=== PATIENT | female | born 1965 | race African-American/Black ===

== ENCOUNTER 2019-03-11 13:09 | Emergency (ER) | payer SELFPAY ==
[~2019-03-11 13:09] MED LIST: ISOVUE-370 76%-LOCM 1 ML ONE
[2019-03-11 14:09] LABS: #Eosinphils 0.1 thou/uL (0.0-0.7); #Lymphocytes 0.7 thou/uL (1.20-3.40); #Monocytes 0.2 thou/uL (0.11-0.59); #Neutrophils 3.4 thou/uL (1.40-6.50); %Basophils 0.8 % (0.0-1.0); %Lymphocytes 14.7 % (21.0-51.0); %Monocytes 4.8 % (0.0-10.0); %Neutrophils 76.8 % (42.0-75.0); Hemoglobin 15.3 g/dL (12.0-16.0); Mean Corpuscular HGB CONC 32.5 g/dL (32.0-36.0); Mean Corpuscular Hemoglobin 29.2 pg (27.0-31.0); Mean Corpuscular Volume 89.9 fL (78.0-98.0); Mean Platelet Volume 9.8 fL (7.4-10.4); Platelet Count 157 thou/uL (130-400); RBC Distribution Width 14.4 % (11.5-14.5); Red Blood Cell (RBC) Count 5.23 mill/uL (4.20-5.40); White Blood Cell (WBC) Count 4.5 thou/uL (4.8-10.8)
--- NOTE | 2019-03-11 14:09 | CT ---
CTA Angio Chest W WO Con HISTORY: Chest pain and shortness of breath. COMPARISON: None. FINDINGS: There are subsegmental atelectatic changes within the lung bases. No confluent infiltrative process or pulmonary nodules. Linear atelectasis is also seen in both upper lobes. No pleural effusions. The thoracic aorta is normal in caliber. There is fairly good pulmonary artery opacification there is no CT evidence for pulmonary embolus. There is no significant mediastinal or hilar adenopathy. The visualized liver parenchyma shows no foc al findings. A low-attenuation left adrenal mass is again noted. It was seen on a previous 2006 exam most likely an adenoma. Measures approximately 4.6 cm. IMPRESSION: No CT evidence for pulmonary embolus.
[2019-03-11 14:23] LABS: ALT (SGPT) 14 U/L (8-55); AST (SGOT) 10 U/L (5-34); Albumin 3.7 g/dL (3.5-5.0); Alkaline Phosphatase 73 U/L (40-150); Anion Gap 9 mmol/L (10-20); BUN (Urea Nitrogen) 10 mg/dL (9.8-20.1); Bilirubin, Total 0.6 mg/dL (0.2-1.2); Calc. Creatinine Clearance 0 mL/min (70-130); Calcium 8.9 mg/dL (7.8-10.44); Carbon Dioxide 36 mmol/L (22-29); Chloride 100 mmol/L (98-107); Estimated GFR-MDRD Greater than 90; Globulin 2.3 g/dL (2.4-3.5); Glucose 199 mg/dL (70-105); Lipase 17 U/L (8-78); Potassium 4.2 mmol/L (3.5-5.1); Sodium 141 mmol/L (136-145)
== END 2019-03-11 15:13 | disposition home or self-care (01) ==
LOC: ERS 13:09
DX: R07.89 Other chest pain (principal); I11.0 Hypertensive heart disease with heart failure; I50.9 Heart failure, unspecified; Z86.711 Personal history of pulmonary embolism; F17.210 Nicotine dependence, cigarettes, uncomplicated; Z79.899 Other long term (current) drug therapy
CPT/HCPCS: 36415; 71275; 80053; 83690; 83880; 84484; 85025; 93005

== ENCOUNTER 2020-01-12 00:16 | Inpatient (IN) | payer OTHER, SELFPAY ==
[2020-01-12 03:31] LABS: Actual Bicarbonate (HCO3a) 38.2 mEq/L (22-28); Base Excess (BEa) 12.7 mEq/L (-2.0 to +3.0); CO2 Tension 50.5 mmHg (35.0-45.0); Calcium, Ionized (arterial) 1.14 mmol/L (1.12-1.30); Carboxyhemoglobin (COHb) 1.2 gm% (0.0-3.0); Hemoglobin (Hb) 16.2 g/dL (12.0-16.0); O2 Tension (PaO2), arterial 70.7 mmHg (80.0-100.0); Potassium - ABG Lab 3.63 mmol/L (3.70-5.30)
[2020-01-12 03:32] LABS: Puncture Site R RADIAL
[2020-01-12] MEDS ORDERED: Propofol 1,000 MG/100 ML VIAL IV ONE (03:32)
[2020-01-12 03:33] LABS: ALV-art Gradient 579.175 (0-20)
--- NOTE | 2020-01-12 03:44 | PDOC.HHP ---
Hospitalist HPI - History of Present Illness respiratoty distress History of Present Illness: Most of the history was obtain from transferring physicians and EMR records. During my evaluation patient sedated and on mechanical ventilation. no family members were present at the moment of my evaluation Case of an 54y/o female with pmhx of copd, dm, cad, chf, and htn who was transferred from [facility] due to respiratory failure requiring mechanical ventilation. apparently patient was on her usual state of health until yesterday when she began with increasing dyspnea and cough, she reports using home therapies w/o resolution of her symptoms for which she decided to come to hospital for evaluation. patient arrived with an 02 sat of 73% in RA and was placed on bipap. abgs showed acute on chronic hypoxic and hypercapnic respiratory failure for which patient was placed on bipap. f/u abgs showed worsening of her respiratory status for which patient was placed on mechanical ventilation and transferred here for further evaluation and management. further work up showed b/l pneumonia concerning for viral pneumonia Hospitalist ROS - Review of Systems ROS unobtainable: due to endotracheal tube Hospitalist History - Past Surgical History Past Surgical History: reports: Cholecystectomy, Hysterectomy - Family History Other Family History: unable to asses due to MV - Social History Smoking Status: Current every day smoker Alcohol: reports: Occassional Drugs: reports: marijuana Living Situation: With Family - Exam General - other findings: sedated on MV Eye: PERRL, anicteric sclera ENT: normocephalic atraumatic, no oropharyngeal lesions Neck: supple, symmetric, no JVD Heart: RRR, no murmur, no gallops Respiratory: CTAB, no wheezes, no rales Gastrointestinal: soft, non-tender, non-distended Extremities: no cyanosis, no clubbing, no edema Skin: normal turgor, no lesions, no rashes Neurological: cranial nerve grossly intact Musculoskeletal: normal tone, no muscle wasting Psychiatric - other findings: sedated Hospitalist Results - Labs Lab results: ABG pH 7.50 (7.35-7.45) H 01/12/20 03:20 ABG pCO2 50.5 mmHg (35.0-45.0) H 01/12/20 03:20 ABG pO2 70.7 mmHg (80.0-100.0) L 01/12/20 03:20 - Radiology Interpretation Chest x-ray Additional Comment: b/l pneumonia Hospitalist H&P A/P - Problem (1) Respiratory failure with hypoxia and hypercapnia Code(s): J96.91 - RESPIRATORY FAILURE, UNSPECIFIED WITH HYPOXIA; J96.92 - RESPIRATORY FAILURE, UNSPECIFIED WITH HYPERCAPNIA Status: Acute (2) Pneumonia Code(s): J18.9 - PNEUMONIA, UNSPECIFIED ORGANISM Status: Acute (3) COVID-19 Code(s): U07.1 - COVID-19 Status: Acute (4) COPD exacerbation Code(s): J44.1 - CHRONIC OBSTRUCTIVE PULMONARY DISEASE W (ACUTE) EXACERBATION Status: Acute (5) HTN (hypertension) Code(s): I10 - ESSENTIAL (PRIMARY) HYPERTENSION Status: Acute (6) CHF (congestive heart failure) Code(s): I50.9 - HEART FAILURE, UNSPECIFIED Status: Acute (7) CAD (coronary artery disease) Code(s): I25.10 - ATHSCL HEART DISEASE OF [place] CORONARY ARTERY W/O ANG PCTRS Status: Acute (8) Diabetes Code(s): E11.9 - TYPE 2 DIABETES MELLITUS WITHOUT COMPLICATIONS Status: Acute (9) Hypertensive urgency Code(s): I16.0 - HYPERTENSIVE URGENCY Status: Acute - Plan Plan: 54y/o female with the stated pmhx who presented with hypoxic and hypercapnic respiratory failure requiring MV in CS, transfer to further management. acute on chronic hypoxic and hypercapnic respiratory failure - on MV f/u abgs - pulmo / crit consulted - sedation protocol pneumonia / covid 19 / copd exacerbation - swab ordered - isolatin protocol started - on rocephin and azithromycin - dexamethazone iv dailiy - cxr w b/l pneumonia concerning for viral pneumonia - has classic covid labs with lymphopenia - will send inflammation marker - ivfs - f/u blood / urine cultures hypertensive urgency - on cardene drip due to systolic b/p in the 200s, transition to oral medicaion when possible DM - accu checks and ss - npo htn / hyperlipidemia / cad / chf - continue home meds when possible
[2020-01-12] MEDS ORDERED: Sodium Chloride 0.9% 1,000 ML IV SCH ×2 (03:45→17:00)
[2020-01-12] MEDS ORDERED: Dextrose 50% Abboject 50 ML SYRINGE SLOW IVP PRN (03:56)
[2020-01-12] MEDS ORDERED: Dextrose 5% in Water 1,000 ML IV PRN (03:56)
[2020-01-12] MEDS ORDERED: Morphine 2 MG/ML VIAL SLOW IVP PRN (04:04)
[2020-01-12] MEDS ORDERED: fentaNYL Citrate/PF 2,000 MCG in Sodium Chloride 0.9% 60 ML IV SCH (04:04)
[2020-01-12] MEDS ORDERED: Fentanyl BOLUS 250 ML IVPB PRN (04:04)
[2020-01-12] MEDS ORDERED: Propofol BOLUS 1,000 MG/100 ML VIAL IV PRN (04:04)
[2020-01-12] MEDS ORDERED: DISCONTINUE PREVIOUS NARCOTIC PAIN MEDICATIONS AND BENZODIAZEPINES FS SCH (04:04)
[2020-01-12] MEDS ORDERED: niCARdipine 25 MG in Sodium Chloride 0.9% 250 ML 240 ML IVPB SCH (04:15)
[2020-01-12] MEDS: Lorazepam 2 MG/ML VIAL SLOW IVP PRN ×3 (04:18→14:40)
[2020-01-12] MEDS: Propofol 1,000 MG/100 ML VIAL IV PRN ×6 (06:09→23:53)
[2020-01-12] MEDS: HumaLOG 300 UNITS/3 ML VIAL SC PRN ×5 (06:09→23:06)
[2020-01-12 07:17] LABS: Actual Bicarbonate (HCO3a) 41.8 mEq/L (22-28); Base Excess (BEa) 15.1 mEq/L (-2.0 to +3.0); CO2 Tension 58.7 mmHg (35.0-45.0); Calcium, Ionized (arterial) 1.13 mmol/L (1.12-1.30); Carboxyhemoglobin (COHb) 1.3 gm% (0.0-3.0); Hemoglobin (Hb) 14.6 g/dL (12.0-16.0); O2 Tension (PaO2), arterial 71.6 mmHg (80.0-100.0); Potassium - ABG Lab 3.47 mmol/L (3.70-5.30); pH, Arterial 7.47 (7.35-7.45)
[2020-01-12 07:42] LABS: ALV-art Gradient 496.725 (0-20); Puncture Site RRA
[2020-01-12] MEDS ORDERED: Dexamethasone 4 mg/ml Vial SLOW IVP SCH (09:00)
--- NOTE | 2020-01-12 10:14 | CON ---
DATE OF CONSULTATION: HISTORY OF PRESENT ILLNESS: A 54-year-old female, 90 kg, presented to the ER in [place] with blood pressure 178/123, 56% sats on room air, pulse severe respiratory distress. She was eventually intubated and was transferred to [facility]. She is presently sedated, unable to get additional information; but past medical history is pertinent for previous back surgeries; MRSA infection, requiring prolonged antibiotics, along with endocarditis; history of hypertension; pulmonary emboli; COPD; tobacco abuse; and congestive heart failure. PAST SURGICAL HISTORY: Hysterectomy, back surgery, and cholecystectomy. SOCIAL HISTORY: Alcohol, minimal. Smokes marijuana, tobacco. HOME MEDICATIONS: Apparently include: 1. Metoprolol 100. 2. Spironolactone 25. ALLERGIES: CODEINE. REVIEW OF SYSTEMS: Unobtainable. PHYSICAL EXAMINATION: GENERAL: She is sedated. VITAL SIGNS: Blood pressure 136/96, pulse 109, sats 95%, respiratory rate 18. CHEST: Rhonchi and crackles. CARDIAC: Normal S1, S2. No gallops. ABDOMEN: No masses. LABORATORY DATA: White count was 6000, H and H 15 and 49, platelet count was normal. PO2 showed 71, pCO2 of 58, pH 7.47, bicarb was 41. Lytes were normal. BNP was 292. X-ray shows diffuse pulmonary infiltrates, scoliosis. IMPRESSION: 1. Respiratory failure, pneumonia versus congestive heart failure. 2. Tobacco, history of marijuana abuse. 3. Chronic issues with back. PLAN: Awaiting serology for coronavirus. Otherwise, agree with broad-spectrum antibiotics, neb treatments, steroids, supportive care. I ordered echo, DVT prophylaxis, swab test, etc. 45 minutes of critical care time. Job ID: [id number]
[2020-01-12] MEDS: Famotidine/PF 20 mg/2ml Vial SLOW IVP SCH ×2 (10:15→19:31)
[2020-01-12] MEDS: Enoxaparin Sodium 40 MG/0.4 ML SYRINGE SC SCH ×2 (10:19→19:30)
[2020-01-12] MEDS: methylPREDNISolone Sod Succ 40 MG VIAL IVP SCH ×3 (11:46→23:21)
[2020-01-12 11:47] LABS: ALT (SGPT) 15 U/L (8-55); AST (SGOT) 25 U/L (5-34); Albumin 3.1 g/dL (3.5-5.0); Alkaline Phosphatase 61 U/L (40-110); BUN (Urea Nitrogen) 9 mg/dL (9.8-20.1); Bilirubin, Total 0.9 mg/dL (0.2-1.2); Calc. Creatinine Clearance 146 mL/min (70-130); Calcium 9.1 mg/dL (7.8-10.44); Carbon Dioxide Greater than 37 mmol/L (22-29); Chloride 95 mmol/L (98-107); Estimated GFR-MDRD Greater than 90; Globulin 3.3 g/dL (2.4-3.5); Glucose 151 mg/dL (70-105); Potassium 4.4 mmol/L (3.5-5.1); Protein, Total 6.4 g/dL (6.0-8.3); Sodium 143 mmol/L (136-145)
[2020-01-12 13:58] LABS: SARS-CoV-2 MS2 Positive; SARS-CoV-2 N Gene Negative; SARS-CoV-2 S Gene Negative; SARS-CoV-2 orf1ab Negative
[2020-01-12] MEDS ORDERED: Furosemide 40 MG/4 ML VIAL SLOW IVP SCH (15:00)
[2020-01-12] MEDS ORDERED: Ipratropium/Albuterol Sulfate 4 GM AER IH SCH (19:00)
[2020-01-12] MEDS: cefTRIAXone\\ROCEPHIN 2 GM in Sodium Chloride 0.9% 100 ML IVPB SCH (20:12)
[2020-01-12] MEDS: Azithromycin 500 MG in Sodium Chloride 0.9% 250 ML 250 ML IVPB SCH (21:29)
[2020-01-12] MEDS: Albuterol 200 PUFF (6.7GM INHALER) INH SCH ×2 (22:11→23:34)
[2020-01-13] MEDS ORDERED: Ipratropium/Albuterol Sulfate 4 GM AER IH SCH (01:00)
[2020-01-13] MEDS: HumaLOG 300 UNITS/3 ML VIAL SC PRN ×2 (03:14→14:48)
[2020-01-13 04:33] LABS: #Lymphocytes 0.3 thou/uL (1.20-3.40); #Monocytes 0.3 thou/uL (0.11-0.59); #Neutrophils 5.3 thou/uL (1.40-6.50); %Eosinophils 0.4 % (0.0-10.0); %Lymphocytes 5.6 % (21.0-51.0); %Monocytes 4.8 % (0.0-10.0); %Neutrophils 89.2 % (42.0-75.0); Hemoglobin 15.6 g/dL (12.0-16.0); Mean Corpuscular HGB CONC 31.7 g/dL (32.0-36.0); Mean Corpuscular Volume 91.5 fL (78.0-98.0); Mean Platelet Volume 11.7 fL (7.4-10.4); Platelet Count 170 thou/uL (130-400); RBC Distribution Width 18.2 % (11.5-14.5); White Blood Cell (WBC) Count 5.9 thou/uL (4.8-10.8)
[2020-01-13] MEDS: Propofol 1,000 MG/100 ML VIAL IV PRN ×4 (04:43→22:18)
[2020-01-13 04:51] LABS: ALT (SGPT) 11 U/L (8-55); AST (SGOT) 23 U/L (5-34); Albumin 3.1 g/dL (3.5-5.0); Alkaline Phosphatase 57 U/L (40-110); BUN (Urea Nitrogen) 12 mg/dL (9.8-20.1); Bilirubin, Total 0.9 mg/dL (0.2-1.2); CRP (Inflammatory) 3.95 mg/dL (= or < 0.5); Calc. Creatinine Clearance 148 mL/min (70-130); Calcium 8.9 mg/dL (7.8-10.44); Estimated GFR-MDRD Greater than 90; Globulin 3.2 g/dL (2.4-3.5); Glucose 174 mg/dL (70-105); Protein, Total 6.3 g/dL (6.0-8.3)
[2020-01-13 04:55] LABS: Anion Gap 18 mmol/L (10-20); Carbon Dioxide 32 mmol/L (22-29); Chloride 96 mmol/L (98-107); Sodium 142 mmol/L (136-145)
[2020-01-13] MEDS: methylPREDNISolone Sod Succ 40 MG VIAL IVP SCH ×3 (05:43→17:54)
[2020-01-13 07:03] LABS: Actual Bicarbonate (HCO3a) 35.7 mEq/L (22-28); CO2 Tension 41.7 mmHg (35.0-45.0); Calcium, Ionized (arterial) 1.16 mmol/L (1.12-1.30); Hemoglobin (Hb) 16.5 g/dL (12.0-16.0); O2 Tension (PaO2), arterial 63.1 mmHg (80.0-100.0); Potassium - ABG Lab 3.32 mmol/L (3.70-5.30)
[2020-01-13 07:16] LABS: ALV-art Gradient 383.875 (0-20); Puncture Site RRAD; pH, Arterial 7.55 (7.35-7.45)
[2020-01-13] MEDS: Albuterol 200 PUFF (6.7GM INHALER) INH SCH ×4 (07:24→23:28)
--- NOTE | 2020-01-13 07:52 | RAD ---
XR Chest 1 View Portable History: Ventilated patient Comparison: Radiograph 2 days prior Findings: Patient is intubated with endotracheal tube tip above the josesito 2.2 cm. Airspace opacities are similar. Dense left lower lobe consolidation. Enteric tube tip below diaphragm although out of field of view. Effusions are similar. Impression: No significant interval improvement in lung aeration.
--- NOTE | 2020-01-13 08:11 | PRG ---
DATE OF SERVICE: 01/13/2020 SUBJECTIVE: Taty Sarabia is a 54-year-old female who was still on the vent, low-dose Diprivan, more responsive, awake. Moves both lower extremities. OBJECTIVE: VITAL SIGNS: Pulse 70, blood pressure 168/100, saturations are 94% on 70%, PEEP of 10. I's and O's have been negative. CHEST: Decreased breath sounds without any wheezing, but bilateral rhonchi. CARDIAC: Normal S1, S2. No gallops. ABDOMEN: No masses. LABORATORY DATA: White count 5000, H and H normal, platelet count normal. PO2 is 63, pCO2 45%, pH 7.55. Bicarb was 32. Creatinine is normal. C-reactive protein is 30.95. ASSESSMENT: Respiratory failure, morbid obesity, congestive heart failure, probably underlying sleep apnea. We will start nutrition. Await results of the echo. Input from Cardiology. Started low-dose Diamox. We will start weaning in the next 24 to 48 hours. In the meantime, continue antibiotics. One-half hour of critical care time. Job ID: [id number]
[2020-01-13] MEDS ORDERED: acetaZOLAMIDE Sodium 500 MG in Sodium Chloride 0.9% 50 ML IVPB SCH (09:00)
[2020-01-13] MEDS: Famotidine/PF 20 mg/2ml Vial SLOW IVP SCH ×2 (09:54→22:18)
[2020-01-13] MEDS: Enoxaparin Sodium 40 MG/0.4 ML SYRINGE SC SCH ×2 (09:54→22:18)
[2020-01-13] MEDS: acetaZOLAMIDE Sodium 500 mg Vial IVP SCH (09:55)
[2020-01-13] MEDS: Sterile Water 10 ML VIAL IVP SCH (09:56)
[2020-01-13] MEDS: cefTRIAXone\\ROCEPHIN 2 GM in Sodium Chloride 0.9% 100 ML IVPB SCH (22:17)
[2020-01-13] MEDS: Azithromycin 500 MG in Sodium Chloride 0.9% 250 ML 250 ML IVPB SCH (22:18)
[2020-01-14] MEDS: methylPREDNISolone Sod Succ 40 MG VIAL IVP SCH ×4 (00:24→18:19)
[2020-01-14] MEDS: Propofol 1,000 MG/100 ML VIAL IV PRN ×3 (02:26→13:40)
[2020-01-14 04:05] LABS: #Lymphocytes 0.3 thou/uL (1.20-3.40); #Monocytes 0.3 thou/uL (0.11-0.59); #Neutrophils 4.4 thou/uL (1.40-6.50); %Basophils 0.4 % (0.0-1.0); %Eosinophils 0.3 % (0.0-10.0); %Lymphocytes 5.5 % (21.0-51.0); %Monocytes 5.3 % (0.0-10.0); %Neutrophils 88.5 % (42.0-75.0); Hemoglobin 14.6 g/dL (12.0-16.0); Mean Corpuscular Hemoglobin 28.9 pg (27.0-31.0); Mean Corpuscular Volume 90.5 fL (78.0-98.0); Platelet Count 173 thou/uL (130-400); RBC Distribution Width 17.8 % (11.5-14.5); Red Blood Cell (RBC) Count 5.03 mill/uL (4.20-5.40)
[2020-01-14 04:14] LABS: Anion Gap 10 mmol/L (10-20); BUN (Urea Nitrogen) 14 mg/dL (9.8-20.1); Calc. Creatinine Clearance 172 mL/min (70-130); Calcium 8.4 mg/dL (7.8-10.44); Carbon Dioxide 34 mmol/L (22-29); Chloride 99 mmol/L (98-107); Estimated GFR-MDRD Greater than 90; Glucose 163 mg/dL (70-105); Potassium 3.9 mmol/L (3.5-5.1); Sodium 139 mmol/L (136-145)
[2020-01-14 07:05] LABS: Actual Bicarbonate (HCO3a) 30.9 mEq/L (22-28); Base Excess (BEa) 3.4 mEq/L (-2.0 to +3.0); CO2 Tension 58.1 mmHg (35.0-45.0); Calcium, Ionized (arterial) 1.21 mmol/L (1.12-1.30); Carboxyhemoglobin (COHb) 1.3 gm% (0.0-3.0); Hemoglobin (Hb) 15.7 g/dL (12.0-16.0); O2 Tension (PaO2), arterial 88.2 mmHg (80.0-100.0); Potassium - ABG Lab 3.95 mmol/L (3.70-5.30); pH, Arterial 7.34 (7.35-7.45)
--- NOTE | 2020-01-14 07:55 | RAD ---
XR Chest 1 View Portable History: Ventilated patient Comparison: Radiograph prior day Findings: Endotracheal tube tip sits above the josesito 3.2 cm. Enteric tube tip below diaphragm althou gh out of field of view. Moderate effusions are similar. The focal airspace opacities are similar. No acute osseous abnormalit y. Impression: No significant interval change in the radiographic appearance of the chest.
[2020-01-14] MEDS: Albuterol 200 PUFF (6.7GM INHALER) INH SCH ×3 (08:11→19:23)
[2020-01-14 08:13] LABS: ALV-art Gradient 266.975 (0-20); Puncture Site RRAD
[2020-01-14] MEDS: acetaZOLAMIDE Sodium 500 mg Vial IVP SCH (08:33)
[2020-01-14] MEDS: Famotidine/PF 20 mg/2ml Vial SLOW IVP SCH ×2 (08:33→20:21)
[2020-01-14] MEDS: Enoxaparin Sodium 40 MG/0.4 ML SYRINGE SC SCH ×2 (08:34→20:22)
[2020-01-14] MEDS: Sterile Water 10 ML VIAL IVP SCH (08:34)
--- NOTE | 2020-01-14 10:15 | PRG ---
DATE OF SERVICE: SUBJECTIVE: Taty Sarabia is a 54-year-old demented patient, who this morning, is ventilator sedated. OBJECTIVE: VITAL SIGNS: Temperature , respiratory rate , pulse 80, blood pressure 123/80. I's and O's have been consistently negative. CHEST: Decreased breath sounds. No wheezing. CARDIAC: Normal S1, S2. No gallops. ABDOMEN: Soft. IMPRESSION: Respiratory failure, morbid obesity, diastolic dysfunction, chronic pain, dementia, x-ray looks much improved. Echo showed surprisingly normal ejection fraction. Thyroid function not done. You can hold sedation and consider weaning and extubation. One-half hour of critical time. Job ID: [id number]
[2020-01-14] MEDS: HumaLOG 300 UNITS/3 ML VIAL SC PRN ×2 (12:07→18:24)
[2020-01-14 14:00] VITALS: BMI 35.5
[2020-01-14] MEDS ORDERED: DC Sedation Protocol FS ONE (15:22)
--- NOTE | 2020-01-14 18:32 | PDOC.HOSPP ---
- Subjective Encounter Date: 01/14/20 Encounter Time: 11:00 Subjective: pt intubated but awake and moves all ext - Objective Vital Signs & Weight: Vital Signs (12 hours) Temp Pulse Resp Pulse Ox 01/14/20 16:00 98 01/14/20 15:25 84 24 H 95 01/14/20 14:00 8 L 01/14/20 12:00 97.7 F 8 L 01/14/20 10:43 69 01/14/20 10:00 8 L 01/14/20 08:11 62 01/14/20 08:00 97.6 F 8 L 92 L 01/14/20 07:57 8 L Weight Admit Weight 237 lb 7.005 oz Weight 233 lb 14.567 oz Most Recent Monitor Data Heart Rate from ECG 88 NIBP 169/108 NIBP BP-Mean 128 Respiration from ECG 26 SpO2 93 I&O: 01/13/20 01/14/20 01/15/20 06:59 06:59 06:59 Intake Total 2099 1742 1042 Output Total 2955 1850 725 Balance -856 -108 317 Result Diagrams: 01/14/20 03:30 01/14/20 03:30 Additional Labs: Accuchecks 01/14/20 01/14/20 01/14/20 18:19 12:11 00:42 POC Glucose 227 H 204 H 176 H 01/13/20 18:05 POC Glucose 171 H Hospitalist ROS - Review of Systems Other: unable to obtain - Medication Medications: Active Medications Generic Name Dose Route Start Last Admin Trade Name Marco Antonioq PRN Reason Stop Dose Admin Acetazolamide Sodium 500 mg 01/13/20 09:00 01/14/20 08:33 Diamox IVP 01/16/20 09:01 500 mg DAILY CARISSA Administration Albuterol Sulfate 2 puff 01/12/20 19:00 01/14/20 15:57 Proventil Hfa INH Not Given [id number] CARISSA Enoxaparin Sodium 40 mg 01/12/20 09:00 01/14/20 08:34 Lovenox SC 40 mg 0900,2100 CARISSA Administration Famotidine 20 mg 01/12/20 09:00 01/14/20 08:33 Pepcid SLOW IVP 20 mg BID CARISSA Administration Azithromycin 500 mg/ Sodium 250 mls @ 250 mls/hr 01/12/20 22:00 01/13/20 22: 18 Chloride IVPB 250 mls Q24HR CARISSA Administration Ceftriaxone Sodium 2 gm/ 100 mls @ 200 mls/hr 01/12/20 21:00 01/13/20 22:17 Sodium Chloride IVPB 100 mls Q24HR CARISSA Administration Ascorbic Acid 1,500 mg/ Sodium 53 mls @ 100 mls/hr 01/12/20 12:00 01/14/20 18 :23 Chloride IVPB 01/16/20 06:32 53 mls Q6HR CARISSA Administration Thiamine HCl 200 mg/ Sodium 52 mls @ 100 mls/hr 01/12/20 09:00 01/14/20 08:33 Chloride IVPB 01/16/20 09:01 52 mls Q12HR CARISSA Administration Insulin Human Lispro 0 units 01/12/20 03:56 01/14/20 18:24 Humalog SC 3 unit .MILD SLIDING SCALE PRN Administration Mild Correctional Scale Methylprednisolone Sodium Succinate 40 mg 01/12/20 12:00 01/14/20 18:19 Solu-Medrol IVP 40 mg Q6HR CARISSA Administration Sterile Water 10 ml 01/13/20 09:00 01/14/20 08:34 Water For Injection IVP 01/16/20 09:01 10 ml DAILY CARISSA Administration - Exam Heart: negative: RRR, no murmur, no gallops, no rubs, normal peripheral pulses, irregular, diminshed peripheral pulses, murmur present, II/IV, III/IV Respiratory: rhonchi Gastrointestinal: negative: soft, non-tender, non-distended, normal bowel sounds , no palpable masses, no hepatomegaly, no splenomegaly, no bruit, no guarding, no rigidity, tender to palpation, distended, diminished bowl sounds, voluntary guarding Extremities: 1+ LE edema Neurological - other findings: pt awake Hosp A/P (1) MRSA bacteremia Code(s): R78.81 - BACTEREMIA; B95.62 - METHICILLIN RESIS STAPH INFCT CAUSING DISEASES CLASSD ELSWHR Status: Acute (2) CAD (coronary artery disease) Code(s): I25.10 - ATHSCL HEART DISEASE OF [place] CORONARY ARTERY W/O ANG PCTRS Status: Acute (3) Diabetes Code(s): E11.9 - TYPE 2 DIABETES MELLITUS WITHOUT COMPLICATIONS Status: Acute (4) Respiratory failure with hypoxia and hypercapnia Code(s): J96.91 - RESPIRATORY FAILURE, UNSPECIFIED WITH HYPOXIA; J96.92 - RESPIRATORY FAILURE, UNSPECIFIED WITH HYPERCAPNIA Status: Acute - Plan spoke with pt's who did not know much except that she was sob and he brought her to the hospital. covid negative. BNP not too elevated. she is a smoker possible copd exab. did say that he thinks her oxygen is not working well at home. He also states that she stays at home. she has a hx of mrsa bactremia and per records has a hx of drug use. she has a flail chordae but her MR is mild. I spoke with cardiology about her echo. if her blood cx becomes positive or she has a fever she will need a WOODY.
[2020-01-14] MEDS: cefTRIAXone\\ROCEPHIN 2 GM in Sodium Chloride 0.9% 100 ML IVPB SCH (20:20)
[2020-01-14] MEDS: Azithromycin 500 MG in Sodium Chloride 0.9% 250 ML 250 ML IVPB SCH (21:51)
[2020-01-14] MEDS ORDERED: Lorazepam 2 MG/ML VIAL SLOW IVP PRN (22:20)
[2020-01-14] MEDS: hydrALAZINE 20 MG/ML VIAL SLOW IVP PRN (22:46)
[2020-01-15] MEDS: methylPREDNISolone Sod Succ 40 MG VIAL IVP SCH ×2 (00:01→05:05)
[2020-01-15] MEDS: Albuterol 200 PUFF (6.7GM INHALER) INH SCH ×3 (00:07→13:37)
[2020-01-15] MEDS: HumaLOG 300 UNITS/3 ML VIAL SC PRN ×4 (00:51→12:08)
[2020-01-15 04:09] LABS: Anion Gap 12 mmol/L (10-20); BUN (Urea Nitrogen) 15 mg/dL (9.8-20.1); Calc. Creatinine Clearance 157 mL/min (70-130); Calcium 9.1 mg/dL (7.8-10.44); Carbon Dioxide 30 mmol/L (22-29); Chloride 102 mmol/L (98-107); Estimated GFR-MDRD Greater than 90; Glucose 225 mg/dL (70-105); Potassium 3.6 mmol/L (3.5-5.1); Sodium 140 mmol/L (136-145)
[2020-01-15] MEDS: hydrALAZINE 20 MG/ML VIAL SLOW IVP PRN (04:35)
[2020-01-15] MEDS ORDERED: Diazepam 5 MG TAB PO PRN (04:50)
[2020-01-15] MEDS ORDERED: diphenhydrAMINE 25 MG CAP PO SCH (05:00)
[2020-01-15] MEDS ORDERED: Diazepam 5 MG TAB PO SCH (05:00)
[2020-01-15 05:07] LABS: #Lymphocytes 0.2 thou/uL (1.20-3.40); #Monocytes 0.4 thou/uL (0.11-0.59); #Neutrophils 7.4 thou/uL (1.40-6.50); %Basophils 0.6 % (0.0-1.0); %Eosinophils 0.4 % (0.0-10.0); %Lymphocytes 2.3 % (21.0-51.0); %Monocytes 4.7 % (0.0-10.0); %Neutrophils 92.1 % (42.0-75.0); Hemoglobin 16.4 g/dL (12.0-16.0); Mean Corpuscular HGB CONC 31.9 g/dL (32.0-36.0); Mean Corpuscular Hemoglobin 29.1 pg (27.0-31.0); Mean Corpuscular Volume 91.1 fL (78.0-98.0); Platelet Count 183 thou/uL (130-400); RBC Distribution Width 17.8 % (11.5-14.5); Red Blood Cell (RBC) Count 5.64 mill/uL (4.20-5.40)
[2020-01-15] MEDS: acetaZOLAMIDE Sodium 500 mg Vial IVP SCH (07:59)
[2020-01-15] MEDS: Sterile Water 10 ML VIAL IVP SCH (07:59)
[2020-01-15] MEDS: Enoxaparin Sodium 40 MG/0.4 ML SYRINGE SC SCH ×2 (07:59→21:15)
[2020-01-15] MEDS: Famotidine/PF 20 mg/2ml Vial SLOW IVP SCH ×2 (07:59→21:14)
[2020-01-15] MEDS: Docusate 100 MG CAP PO SCH ×2 (08:00→21:14)
[2020-01-15] MEDS: Folic Acid 1 MG TAB PO SCH (08:00)
[2020-01-15] MEDS: Lorazepam 1 MG TAB PO SCH ×2 (08:00→21:17)
[2020-01-15] MEDS: Hydrochlorothiazide 25 MG TAB PO SCH (08:00)
[2020-01-15] MEDS: Amlodipine 10 MG TAB PO SCH (08:00)
[2020-01-15] MEDS: Multivitamin W/ Minerals 1 TAB PO SCH (08:00)
[2020-01-15] MEDS: Lisinopril 20 MG TAB PO SCH ×2 (08:02→21:15)
[2020-01-15 08:31] LABS: Hemoglobin A1c 6.8 % (4.0-6.0)
--- NOTE | 2020-01-15 08:44 | RAD ---
SINGLE VIEW CHEST: Date: 01/15/2020 COMPARISON: 01/14/2020. HISTORY: Ventilated patient with respiratory failure. FINDINGS: Single view of the chest shows an enlarged but stable cardiomediastinal silhouette. The patient has b een extubated. The NG tube has been removed. Linear opacity in the left lung base may represent atele ctasis. IMPRESSION: Stable exam status post extubation. POS: EAA
[2020-01-15] MEDS ORDERED: Lisinopril/Hydrochlorothiazide 20/25 mg Tablet PO SCH (09:00)
[2020-01-15] MEDS ORDERED: Losartan 25 MG TAB PO SCH (09:00)
[2020-01-15] MEDS: Insulin Glargine 8 UNITS in Pre-Filled Syringe 1 EACH SC SCH (09:20)
[2020-01-15] MEDS ORDERED: Doxycycline 100 MG CAP PO SCH (09:45)
--- NOTE | 2020-01-15 10:17 | PRG ---
DATE OF SERVICE: 01/15/2020 SUBJECTIVE: Taty Sarabia this morning is awake, alert, and responsive. She wants to go home. She was extubated yesterday. OBJECTIVE: VITAL SIGNS: Pulse is 96, blood pressure 151/108, respiratory rate 18, and saturations 90%. CHEST: Decreased breath sounds. No wheezing. CARDIAC: Normal S1, S2. No gallops. ABDOMEN: No masses. LABORATORY DATA: Bicarb is 230. White count 8000 and hemoglobin and hematocrit of 16 and 51, glucose 203. ASSESSMENT: [id number] respiratory failure, pneumonia, diastolic dysfunction, chronic pain, morbid obesity, sleep apnea, and metabolic alkalosis. PLAN: Switch over to oral medication. It is very important she continues on nocturnal BiPAP at home. She is encouraged to lose weight. She is encouraged to follow up with the physician at [facility]. Job ID: [id number]
--- NOTE | 2020-01-15 17:33 | PDOC.HOSPP ---
- Subjective Encounter Date: 01/15/20 Encounter Time: 11:15 Subjective: pt up in bed no complains - Objective Vital Signs & Weight: Vital Signs (12 hours) Temp Pulse Resp BP BP BP Pulse Ox 01/15/20 16:41 98.2 F 84 20 116/77 94 L 01/15/20 14:20 98 F 82 18 137/67 95 01/15/20 13:40 100 30 H 94 L 01/15/20 12:00 98.4 F 01/15/20 08:02 151/108 H 01/15/20 08:00 98.2 F 96 151/108 H 97 01/15/20 06:33 96 21 H 95 Weight Admit Weight 237 lb 7.005 oz Weight 233 lb 3.985 oz Most Recent Monitor Data Heart Rate from ECG 102 NIBP 136/94 NIBP BP-Mean 108 Respiration from ECG 31 SpO2 94 I&O: 01/14/20 01/15/20 01/16/20 06:59 06:59 06:59 Intake Total 1742 3242 900 Output Total 1850 2160 900 Balance -108 1082 0 Result Diagrams: 01/15/20 03:19 01/15/20 03:19 Additional Labs: Accuchecks 01/15/20 01/15/20 01/15/20 11:53 08:53 05:15 POC Glucose 297 H 203 H 234 H 01/15/20 01/14/20 00:55 18:19 POC Glucose 255 H 227 H Hospitalist ROS - Review of Systems Cardiovascular: denies: chest pain, palpitations, orthopnea, paroxysmal noc. dyspnea, edema, light headedness, other Gastrointestinal: denies: nausea, vomiting, abdominal pain, diarrhea, constipation, melena, hematochezia, other Genitourinary: denies: dysuria, frequency, incontinence, hematuria, retention, other - Medication Medications: Active Medications Generic Name Dose Route Start Last Admin Trade Name Freq PRN Reason Stop Dose Admin Acetazolamide Sodium 500 mg 01/13/20 09:00 01/15/20 07:59 Diamox IVP 01/16/20 09:01 500 mg DAILY CARISSA Administration Albuterol/Ipratropium 3 ml 01/14/20 19:00 01/15/20 13:40 Duoneb NEB 3 ml [id number] CARISSA Administration Amlodipine Besylate 10 mg 01/15/20 09:00 01/15/20 08:00 Norvasc PO 10 mg DAILY CARISSA Administration Docusate Sodium 100 mg 01/15/20 09:00 01/15/20 08:00 Colace PO 100 mg BID CARISSA Administration Enoxaparin Sodium 40 mg 01/12/20 09:00 01/15/20 07:59 Lovenox SC 40 mg 0900,2100 CARISSA Administration Famotidine 20 mg 01/12/20 09:00 01/15/20 07:59 Pepcid SLOW IVP 20 mg BID CARISSA Administration Folic Acid 1 mg 01/15/20 09:00 01/15/20 08:00 Folvite PO 1 mg DAILY CARISSA Administration Hydralazine HCl 10 mg 01/14/20 22:21 01/15/20 04:35 Apresoline SLOW IVP 10 mg Q4H PRN Administration SBP > 180 and HR < 70 Hydrochlorothiazide 25 mg 01/15/20 09:00 01/15/20 08:00 Hydrochlorothiazide PO 25 mg DAILY CARISSA Administration Insulin Glargine 8 units/ 0.08 mls @ 0 mls/hr 01/15/20 09:00 01/15/20 09:20 Miscellaneous Medication SC 0.08 mls QAM CARISSA Administration Insulin Human Lispro 0 units 01/12/20 03:56 01/15/20 12:08 Humalog SC 3 unit .MILD SLIDING SCALE PRN Administration Mild Correctional Scale Iron/Minerals/Multivitamins 1 tab 01/15/20 09:00 01/15/20 08:00 Theragran M PO 1 tab DAILY CARISSA Administration Lisinopril 20 mg 01/15/20 09:00 01/15/20 08:02 Zestril PO 20 mg BID CARISSA Administration Lorazepam 1 mg 01/15/20 09:00 01/15/20 08:00 Ativan PO 1 mg BID CARISSA Administration Sterile Water 10 ml 01/13/20 09:00 01/15/20 07:59 Water For Injection IVP 01/16/20 09:01 10 ml DAILY CARISSA Administration - Exam Neck: negative: supple, symmetric, no JVD, no thyromegaly, no lymphadenopathy, no carotid bruit, JVD Heart: negative: RRR, no murmur, no gallops, no rubs, normal peripheral pulses, irregular, diminshed peripheral pulses, murmur present, II/IV, III/IV Respiratory: rhonchi Gastrointestinal: negative: soft, non-tender, non-distended, normal bowel sounds , no palpable masses, no hepatomegaly, no splenomegaly, no bruit, no guarding, no rigidity, tender to palpation, distended, diminished bowl sounds, voluntary guarding Hosp A/P (1) MRSA bacteremia Code(s): R78.81 - BACTEREMIA; B95.62 - METHICILLIN RESIS STAPH INFCT CAUSING DISEASES CLASSD ELSWHR Status: Acute (2) CAD (coronary artery disease) Code(s): I25.10 - ATHSCL HEART DISEASE OF [place] CORONARY ARTERY W/O ANG PCTRS Status: Acute (3) Diabetes Code(s): E11.9 - TYPE 2 DIABETES MELLITUS WITHOUT COMPLICATIONS Status: Acute (4) Respiratory failure with hypoxia and hypercapnia Code(s): J96.91 - RESPIRATORY FAILURE, UNSPECIFIED WITH HYPOXIA; J96.92 - RESPIRATORY FAILURE, UNSPECIFIED WITH HYPERCAPNIA Status: Acute (5) COPD exacerbation Code(s): J44.1 - CHRONIC OBSTRUCTIVE PULMONARY DISEASE W (ACUTE) EXACERBATION Status: Acute - Plan spoke with pt's who did not know much except that she was sob and he brought her to the hospital. covid negative. BNP not too elevated. she is a smoker possible copd exab. did say that he thinks her oxygen is not working well at home. He also states that she stays at home. she has a hx of mrsa bactremia and per records has a hx of drug use. she has a flail chordae but her MR is mild. I spoke with cardiology about her echo. if her blood cx becomes positive or she has a fever she will need a WOODY. 01/14 pt doing well, got extubated 01/13 she will need bipap at night. she is on oxygen at night at home. she continues to smoke half a pack a day and does marijuana. pt abx have been switched to oral and so has her steroids. possible discharge in the next 24-48hr.
[2020-01-15] MEDS: Doxycycline 100 MG CAP PO SCH (21:11)
[2020-01-15] MEDS ORDERED: traZODone HCl 50 MG TAB PO PRN (23:26)
[2020-01-16] MEDS ORDERED: Diazepam 5 MG TAB PO PRN (04:00)
[2020-01-16 06:39] LABS: Anion Gap 9 mmol/L (10-20); BUN (Urea Nitrogen) 14 mg/dL (9.8-20.1); Calc. Creatinine Clearance 157 mL/min (70-130); Calcium 8.9 mg/dL (7.8-10.44); Carbon Dioxide 31 mmol/L (22-29); Chloride 104 mmol/L (98-107); Estimated GFR-MDRD Greater than 90; Glucose 153 mg/dL (70-105); Potassium 3.2 mmol/L (3.5-5.1); Sodium 141 mmol/L (136-145)
[2020-01-16 07:01] LABS: #Eosinphils 0.1 thou/uL (0.0-0.7); #Lymphocytes 0.5 thou/uL (1.20-3.40); #Monocytes 0.5 thou/uL (0.11-0.59); %Eosinophils 0.9 % (0.0-10.0); %Lymphocytes 8.5 % (21.0-51.0); %Monocytes 8.7 % (0.0-10.0); %Neutrophils 81.8 % (42.0-75.0); Mean Corpuscular HGB CONC 32.1 g/dL (32.0-36.0); Mean Corpuscular Hemoglobin 29.2 pg (27.0-31.0); Mean Corpuscular Volume 90.9 fL (78.0-98.0); Mean Platelet Volume 11.4 fL (7.4-10.4); Platelet Count 175 thou/uL (130-400); RBC Distribution Width 17.5 % (11.5-14.5); Red Blood Cell (RBC) Count 5.15 mill/uL (4.20-5.40); White Blood Cell (WBC) Count 6.1 thou/uL (4.8-10.8)
[2020-01-16] MEDS ORDERED: predniSONE 20 MG TAB PO SCH (08:00)
[2020-01-16] MEDS ORDERED: Magnesium Oxide 400 MG TAB PO SCH (09:00)
[2020-01-16] MEDS: Doxycycline 100 MG CAP PO SCH ×2 (09:08→19:39)
[2020-01-16] MEDS: Amlodipine 10 MG TAB PO SCH (09:08)
[2020-01-16] MEDS: Hydrochlorothiazide 25 MG TAB PO SCH (09:08)
[2020-01-16] MEDS: Folic Acid 1 MG TAB PO SCH (09:08)
[2020-01-16] MEDS: Docusate 100 MG CAP PO SCH ×2 (09:08→19:39)
[2020-01-16] MEDS: Enoxaparin Sodium 40 MG/0.4 ML SYRINGE SC SCH ×2 (09:09→19:40)
[2020-01-16] MEDS: Lisinopril 20 MG TAB PO SCH ×2 (09:09→19:39)
[2020-01-16] MEDS: Famotidine/PF 20 mg/2ml Vial SLOW IVP SCH ×2 (09:09→19:40)
[2020-01-16] MEDS: Multivitamin W/ Minerals 1 TAB PO SCH (09:09)
[2020-01-16] MEDS: Lorazepam 1 MG TAB PO SCH ×2 (09:09→19:39)
[2020-01-16] MEDS: Insulin Glargine 8 UNITS in Pre-Filled Syringe 1 EACH SC SCH (09:10)
[2020-01-16] MEDS ORDERED: Potassium Chloride 20 MEQ TAB PO SCH (09:15)
--- NOTE | 2020-01-16 12:17 | PRG ---
DATE OF SERVICE: 01/16/2020 SUBJECTIVE: A 54-year-old female, who is intubated for respiratory failure and pneumonia. She is doing much better. OBJECTIVE: VITAL SIGNS: Temperature 98, pulse 89, blood pressure 137/87, sats 97 on 2 L. CHEST: No wheezing. No crackles. CARDIAC: Normal S1, S2. LABORATORY DATA: Labs are unremarkable. IMPRESSION: Respiratory failure, pneumonia, severe deconditioning, sleep apnea, metabolic acidosis. She can be discharged home on present medication. She is to see a primary care physician at [facility]. Taper steroids over the course . Job ID: [id number]
[2020-01-16] MEDS: HumaLOG 300 UNITS/3 ML VIAL SC PRN (13:02)
[2020-01-16] MEDS ORDERED: Sterile Water 10 ML VIAL IVP SCH (15:00)
[2020-01-16] MEDS ORDERED: acetaZOLAMIDE Sodium 500 mg Vial IVP SCH (15:00)
[2020-01-16] MEDS: acetaZOLAMIDE Sodium 500 mg Vial IVP SCH (15:04)
[2020-01-16] MEDS: Sterile Water 10 ML VIAL IVP SCH (15:04)
[2020-01-16 17:04] VITALS: BP 130/80; TEMP 98.1
--- NOTE | 2020-01-16 20:35 | DIS ---
DATE OF ADMISSION: 01/12/2020 DATE OF DISCHARGE: 01/16/2020 DISCHARGE DIAGNOSES: 1. Acute hypoxic respiratory failure requiring intubation, likely secondary to pneumonia versus severe sleep apnea/obesity hypoventilation syndrome. 2. Hypokalemia. 3. Flail Chordae Tendinae CONSULTATIONS: Pulmonary, Dr. Srikanth Bolton. PROCEDURE: Intubation, status post extubation. BRIEF HISTORY OF PRESENT ILLNESS: This is a 54-year-old female with a past medical history of COPD, diabetes, CAD, CHF, who presented to the emergency room with respiratory failure. The patient was intubated on arrival. Reportedly, the patient had an oxygen saturation of 73% on room air. Her ABG showed a pH of 7.5 and a pCO2 of 50 with a pO2 of 70. The patient reportedly was using 3 L of oxygen at home. Her chest x-ray showed a left lower lobe pneumonia. She was started on broad-spectrum antibiotics and sent for COVID swab and was admitted for further workup. HOSPITAL COURSE: Acute hypoxic respiratory failure secondary to left lower lobe pneumonia vs MICHELLE vs obesity hypoventilation syndrome The patient was started on IV ceftriaxone, azithromycin, and dexamethasone. She received these from 01/11 to 01/13. She was extubated on and was placed on BiPAP at night. The patient was switched to doxycycline on and her oxygen remained stable at 3 to 4 L which is her baseline. Her COVID test was negative. She was discharged on cefdinir and doxycycline for an additional 7 days and given a 10-day course of prednisone per pulmonary recommendations. The patient does report a history of sleep apnea, however, she does not have a CPAP machine at home and only uses the oxygen while she is sleeping. She was advised to obtain a prescription from her pot annealer for a CPAP MAK. Flail Chordae Tendinae: ECHO showed an EF of 60-65% and a flail chordae tendinae. I discussed this with cardiology who stated no intervention needed except for BP control and diuretics. SHe was discharged with lasix 40 mg bid. Tobacco abuse: She was discharged with a nicotine patch. DISCHARGE PHYSICAL EXAMINATION: VITAL SIGNS: Temperature 98.1, heart rate 90, respiratory rate 20, O2 saturation 87% to 91% on room air and on ambulation, which improved to 93% with 3 L of oxygen. Blood pressure 130/80. GENERAL: The patient is obese. She is oriented x3. CVS: Regular rate and rhythm with no murmurs, rubs, or gallops. LUNGS: Clear to auscultation bilaterally. ABDOMEN: Positive bowel sounds, soft, nontender, and nondistended. EXTREMITIES: No edema. PERTINENT LABORATORY DATA: CBC on 01/15: Unremarkable. BMP on 01/13: Unremarkable. LFTs on 01/13: Within normal limits. TSH on 01/13: 1.222. Procalcitonin: 0.07. COVID PCR on 01/11: Not detected. ABG on 01/13: PH 7.34, pCO2 of 58, and pO2 of 88. IMAGING: Chest x-ray on 01/12: Dense left lower lobe consolidation. Chest x-ray on 01/14: Stable exam. Echo on 01/12: Flailing mass on the atrial side of the mitral valve representing a flail chordae tendineae. Mild to moderate MR. Mild TR. Right ventricular systolic pressure estimated at 35 mmHg. Small pericardial effusion. Mild pulmonic regurg. EF 60% to 65% with grade 1/3 diastolic dysfunction. DISCHARGE CONDITION: Stable. ACTIVITY: As tolerated. DIET: Heart healthy diet. DISCHARGE MEDICATIONS: 1. Cefdinir 300 mg p.o. q.12 hours for 14 capsules. 2. Doxycycline 100 mg p.o. b.i.d., 14 capsules. 3. Nicotine patch. 4. Prednisone 20 mg p.o. daily, quantity 10. 5. Trazodone 50 mg p.o. at bedtime p.r.n. for insomnia. DISCHARGE INSTRUCTIONS: The patient should follow up with her PCP and her pot annealer within a week. She should get her CPAP prescription as soon as possible. She should get repeat chest x-ray in 6 weeks. Job ID: [id number] [facility]
[2020-01-17] MEDS ORDERED: Thiamine 100 MG TAB PO SCH (09:00)
== END 2020-01-16 20:20 | disposition home or self-care (01) | DRG 208 ==
LOC: CCU 00:17 → T4-B 01-15 14:24
PROVIDERS: ADMIT Internal Medicine; ATTEND Internal Medicine
PROC: 5A1945Z Respiratory Ventilation, 24-96 Consecutive Hours (ICD-10-PCS; principal; 2020-01-12)
PROC: 8E0ZXY6 Isolation (ICD-10-PCS; 2020-01-12)
DX: J96.21 Acute and chronic respiratory failure with hypoxia (principal); J18.9 Pneumonia, unspecified organism; E66.2 Morbid (severe) obesity with alveolar hypoventilation; J44.0 Chronic obstructive pulmonary disease with (acute) lower respiratory infection; J44.1 Chronic obstructive pulmonary disease with (acute) exacerbation; E87.4 Mixed disorder of acid-base balance; J96.22 Acute and chronic respiratory failure with hypercapnia; Z20.828 Contact with and (suspected) exposure to other viral communicable diseases; E11.9 Type 2 diabetes mellitus without complications; I50.9 Heart failure, unspecified; I08.1 Rheumatic disorders of both mitral and tricuspid valves; F17.210 Nicotine dependence, cigarettes, uncomplicated; I11.0 Hypertensive heart disease with heart failure; I16.0 Hypertensive urgency; E78.5 Hyperlipidemia, unspecified; F12.10 Cannabis abuse, uncomplicated; F03.90 Unspecified dementia, unspecified severity, without behavioral disturbance, psychotic disturbance, mood disturbance, and anxiety; I25.10 Atherosclerotic heart disease of native coronary artery without angina pectoris; G89.29 Other chronic pain; E87.6 Hypokalemia; Z90.49 Acquired absence of other specified parts of digestive tract; Z68.35 Body mass index [BMI] 35.0-35.9, adult; Z90.710 Acquired absence of both cervix and uterus; Z79.899 Other long term (current) drug therapy; Z88.5 Allergy status to narcotic agent; Z86.14 Personal history of Methicillin resistant Staphylococcus aureus infection; Z78.1 Physical restraint status
CPT/HCPCS: 36415; 36416; 71045; 80048; 80053; 82805; 83036; 83880; 84145; 84443; 85025; 85379; 86140; 87040; 87086; 87635; 93306; 94002; 94003; J0360; J0456; J0696; J1100; J1120; J1650; J1815; J1940; J2060; J2270; J2704; J2920; J3010; J3411; J3475; J3490; J7050; J7512; J7620; Q0163; S0028; U0003

== ENCOUNTER 2020-06-19 09:01 | Inpatient (IN) | payer SELFPAY ==
[2020-06-19] MEDS ORDERED: methylPREDNISolone Sod Succ/PF 125 MG/2 ML VIAL ONE (09:16)
[2020-06-19] MEDS ORDERED: Albuterol 200 PUFF (6.7GM INHALER) ONE (09:20)
[2020-06-19 09:51] LABS: Actual Bicarbonate (HCO3a) 34.5 mEq/L (22-28); Base Excess (BEa) 5.8 mEq/L (-2.0 to +3.0); Calcium, Ionized (arterial) 1.15 mmol/L (1.12-1.30); Carboxyhemoglobin (COHb) 3.6 gm% (0.0-3.0); Hemoglobin (Hb) 17.1 g/dL (12.0-16.0); pH, Arterial 7.34 (7.35-7.45)
[2020-06-19 09:53] LABS: CO2 Tension 66.1 mmHg (35.0-45.0)
[2020-06-19 09:54] LABS: ALV-art Gradient 117.455 mmHg (0-20); O2 Tension (PaO2), arterial 56.6 mmHg (80.0-100.0); Puncture Site RRA
--- NOTE | 2020-06-19 10:17 | RAD ---
PORTABLE CHEST: Date: 06/19/2020 HISTORY: Dyspnea and right-sided pain. COMPARISON: 01/15/2020 exam. FINDINGS: Heart size is enlarged. Pulmonary vessels are engorged. The parenchymal changes in the left base appe ar fairly similar to the previous exam and may be chronic in nature. IMPRESSION: 1. Cardiomegaly with pulmonary vascular engorgement. 2. Parenchymal changes of the left base, fairly similar to the previous exam, may represent chronic change. POS: IRVIN
[2020-06-19 10:23] LABS: ALT (SGPT) 33 U/L (8-55); AST (SGOT) 14 U/L (5-34); Albumin 3.7 g/dL (3.5-5.0); Alkaline Phosphatase 69 U/L (40-110); Anion Gap 15 mmol/L (10-20); BUN (Urea Nitrogen) 7 mg/dL (9.8-20.1); Calc. Creatinine Clearance 0 mL/min (70-130); Calcium 8.6 mg/dL (7.8-10.44); Carbon Dioxide 37 mmol/L (22-29); Chloride 97 mmol/L (98-107); Globulin 2.5 g/dL (2.4-3.5); Glucose 256 mg/dL (70-105); Potassium 3.8 mmol/L (3.5-5.1); Protein, Total 6.2 g/dL (6.0-8.3); Sodium 145 mmol/L (136-145)
[2020-06-19 10:24] LABS: Band 11 % (5-11); Eosinophils 6 % (0-10); Hemoglobin 16.6 g/dL (12.0-16.0); Lymphocytes 23 % (21-51); MDiff Complete? YES; Mean Corpuscular HGB CONC 30.6 g/dL (32.0-36.0); Mean Corpuscular Hemoglobin 26.7 pg (27.0-31.0); Mean Corpuscular Volume 87.3 fL (78.0-98.0); Mean Platelet Volume 9.9 fL (7.4-10.4); Monocytes 4 % (0-10); Neutrophil 51 % (42-75); Platelet Count 224 thou/uL (130-400); RBC Distribution Width 16.6 % (11.5-14.5); Reactive Lymphocytes 5 % (0-10); White Blood Cell (WBC) Count 6.7 thou/uL (4.8-10.8)
[2020-06-19] MEDS ORDERED: Acetaminophen 500 MG TAB ONE (11:25)
--- NOTE | 2020-06-19 14:20 | PDOC.HHP ---
Hospitalist HPI - History of Present Illness Shortness of breath History of Present Illness: Patient was transferred from [facility], patient been there for low oxygen saturation, per patient her oxygen saturation was running in 70s, she was having increasing shortness of breath, paramedics was called and patient was found with a saturation 57% on room air, she has underlying COPD and she is not on any home oxygen therapy, patient was kept on 15 L nasal cannula oxygen and after the saturation improved to 97%, patient had negative COVID-19 screen, patient was given albuterol nebulization therapy, after return to our emergency room patient was given Proventil HFA, Solu-Medrol 125 mg, Tylenol 1 g, patient had chest x-ray which showed chronic changes in left lower lobe, she did not have any fever or chills, she denies any sinus symptoms, she denies any sore throat, she denies any nausea vomiting diarrhea, she denies any exposure with COVID-19, she denies any loss of taste or smell sensation. Patient is being admitted to telemetry floor for COPD exacerbation and acute respiratory failure with hypoxia. ED Course: Patient is given Solu-Medrol 125 mg, albuterol inhaler, Tylenol VITAL SIGNS FriJun 19, 2020 09:08 ANAYA Loya Elizabeth BP: 159/110, MAP: 126, Pulse: 104, Resp: 24, Temp: 98.8 (Oral), Pain: 8, O2 sat: 71 on (Room Air), Time: 06/19/2020 09:08. VITAL SIGNS FriJun 19, 2020 09:19 ANAYA Loya Elizabeth Pulse: 99, Resp: 22, O2 sat: 85, Time: 06/19/2020 09:19. VITAL SIGNS FriJun 19, 2020 09:42 ANAYA Loya Elizabeth BP: 206/143, MAP: 164, Pulse: 98, Resp: 26, Temp: 98.8 (Oral), Pain: 8, O2 sat: 88 on (4L Oxygen), Time: 06/19/2020 09:42. VITAL SIGNS FriJun 19, 2020 10:20 ANAYA Arellano Cullen BP: 147/117, Pulse: 91, Resp: 30, Temp: 98.9, Pain: 8, O2 sat: 90, Time: 06/19/2020 10:20. VITAL SIGNS FriJun 19, 2020 11:31 ANAYA Loya Elizabeth BP: 157/101, MAP: 119, Pulse: 88, Resp: 28, Temp: 98.3 (Oral), Pain: 7, O2 sat: 96 on (4L Oxygen), Time: 06/19/2020 11:31. VITAL SIGNS FriJun 19, 2020 12:25 ANAYA Loya Elizabeth BP: 155/125, MAP: 135, Pulse: 88, Resp: 28, Pain: 6, O2 sat: 98 on (4L Oxygen), Time: 06/19/2020 12:25 Hospitalist ROS - Review of Systems Constitutional: reports: weakness. denies: fever, chills, sweats, malaise, other ENT: denies: ear pain, ear discharge, nose pain, nose discharge, nose conges tion, mouth pain, mouth swelling, throat pain, throat swelling, other Respiratory: reports: shortness of breath, SOB with excertion. denies: cough, dry, hemoptysis, pleuritic pain, sputum, wheezing, other Cardiovascular: denies: chest pain, palpitations, orthopnea, paroxysmal noc. dyspnea, edema, light headedness, other Gastrointestinal: denies: nausea, vomiting, abdominal pain, diarrhea, constipation, melena, hematochezia, other Genitourinary: denies: dysuria, frequency, incontinence, hematuria, retention, other Musculoskeletal: denies: neck pain, shoulder pain, arm pain, back pain, hand pain, leg pain, foot pain, other Skin: denies: rash, lesions, tien, bruising, other - Medication Medications: Home medication Medication Instructions Recorded Confirmed Type Docusate [Colace] 100 mg PO BID #0 cap 02/16/13 Rx HYDROcodone Bit/APAP 10/325 [Sherman] 1 tab PO Q4H PRN #0 tab 02/16/13 Rx Lorazepam [Ativan] 1 mg PO BID #60 tab 02/16/13 Rx Potassium Chloride [K-Dur] 20 meq PO DAILY #0 tab 02/16/13 Rx Sennosides [Senna] 8.6 mg PO DAILY PRN #0 capsule 02/16/13 Rx Amlodipine [Norvasc] 10 mg PO DAILY 01/12/20 01/12/20 History Carvedilol 6.25 mg PO 01/12/20 History Furosemide [Lasix] BID 01/12/20 History Losartan [Cozaar] 25 mg PO DAILY 01/12/20 01/12/20 History Cefdinir 300 mg PO Q12HR #14 capsule 01/16/20 Rx Doxycycline [Vibramycin] 100 mg PO BID #14 cap 01/16/20 Rx Nicotine [Nicotine Patch] 1 each TD DAILY #30 patch.td24 01/16/20 Rx predniSONE 20 mg PO QAM-WM #10 tab 01/16/20 Rx traZODone HCl [Desyrel] 50 mg PO HS PRN #3 tab 01/16/20 Rx Allergy Allergies codeine Allergy (Unknown, Verified 02/07/13 05:30) Hospitalist History - Past Medical History Other Medical History: Hypertension COPD Chronic diastolic heart failure Obesity History of pulmonary embolism Anxiety and depression - Past Surgical History Past Surgical History: reports: Cholecystectomy, Hysterectomy Other Surgical History: Hysterectomy Back surgery Fibroid removal Cholecystectomy - Family History Other Family History: No strong family history of premature coronary artery disease stroke or cancer - Social History Alcohol: reports: Occassional Drugs: reports: marijuana Other Social History: Patient has history of marijuana abuse, she is former smoker, no alcohol abuse - Exam General Appearance: NAD, awake alert Eye: PERRL, anicteric sclera ENT: normocephalic atraumatic, no oropharyngeal lesions Neck: supple, symmetric, no JVD, no thyromegaly Heart: RRR, no murmur, no gallops, no rubs Respiratory - other findings: Bilateral wheezing, air entry reduced Gastrointestinal: soft, non-tender, non-distended, normal bowel sounds Extremities: no cyanosis, no clubbing, no edema Skin: normal turgor, no lesions Neurological: no focal deficits Musculoskeletal: normal tone, normal strength, no muscle wasting Psychiatric: normal affect, normal behavior, A&O x 3 Hospitalist Results - Labs Result Diagrams: 06/19/20 09:51 06/19/20 09:51 Lab results: WBC 6.7 thou/uL (4.8-10.8) 06/19/20 09:51 Hgb 16.6 g/dL (12.0-16.0) H 06/19/20 09:51 Hct 54.1 % (36.0-47.0) H 06/19/20 09:51 MCV 87.3 fL (78.0-98.0) 06/19/20 09:51 Plt Count 224 thou/uL (130-400) 06/19/20 09:51 Band Neuts % (Manual) 11 % (5-11) 06/19/20 09:51 ABG pH 7.34 (7.35-7.45) L 06/19/20 09:40 ABG pCO2 66.1 mmHg (35.0-45.0) H* 06/19/20 09:40 ABG pO2 56.6 mmHg (80.0-100.0) L* 06/19/20 09:40 Sodium 145 mmol/L (136-145) 06/19/20 09:51 Potassium 3.8 mmol/L (3.5-5.1) 06/19/20 09:51 Chloride 97 mmol/L (98-107) L 06/19/20 09:51 Carbon Dioxide 37 mmol/L (22-29) H 06/19/20 09:51 BUN 7 mg/dL (9.8-20.1) L 06/19/20 09:51 Creatinine 0.80 mg/dL (0.6-1.1) 06/19/20 09:51 Glucose 256 mg/dL (70-105) H 06/19/20 09:51 Calcium 8.6 mg/dL (7.8-10.44) 06/19/20 09:51 Total Bilirubin 1.0 mg/dL (0.2-1.2) 06/19/20 09:51 AST 14 U/L (5-34) 06/19/20 09:51 ALT 33 U/L (8-55) 06/19/20 09:51 Alkaline Phosphatase 69 U/L (40-110) 06/19/20 09:51 Troponin I 0.024 ng/mL (< 0.028) 06/19/20 09:51 B-Natriuretic Peptide 569.4 pg/mL (0-100) H 06/19/20 09:51 Serum Total Protein 6.2 g/dL (6.0-8.3) 06/19/20 09:51 Albumin 3.7 g/dL (3.5-5.0) 06/19/20 09:51 - Radiology Interpretation Chest x-ray Status: image reviewed by me Additional Comment: Chest x-ray reviewed, chronic changes in left lower lobe Hospitalist H&P A/P - Problem (1) Acute respiratory failure with hypoxia and hypercapnia Code(s): J96.01 - ACUTE RESPIRATORY FAILURE WITH HYPOXIA; J96.02 - ACUTE RESPIRATORY FAILURE WITH HYPERCAPNIA Status: Acute (2) Acute on chronic diastolic heart failure Code(s): I50.33 - ACUTE ON CHRONIC DIASTOLIC (CONGESTIVE) HEART FAILURE Status: Acute (3) COPD exacerbation Code(s): J44.1 - CHRONIC OBSTRUCTIVE PULMONARY DISEASE W (ACUTE) EXACERBATION Status: Acute (4) HTN (hypertension) Code(s): I10 - ESSENTIAL (PRIMARY) HYPERTENSION Status: Chronic Qualifiers: Hypertension type: essential hypertension Qualified Code(s): I10 - Essent ial (primary) hypertension (5) Morbid obesity Code(s): E66.01 - MORBID (SEVERE) OBESITY DUE TO EXCESS CALORIES Status: Acute (6) Diabetes type 2, controlled Code(s): E11.9 - TYPE 2 DIABETES MELLITUS WITHOUT COMPLICATIONS Status: Chronic Qualifiers: Diabetes mellitus fdc insulin use: with roasterman use - Plan Plan: Plan Admission to telemetry floor DuoNeb q. 4 hourly Pulmicort nebulization twice daily Solu-Medrol 40 mg IV every 8 hourly Lasix 40 mg IV twice daily Acetazolamide to 50 mg twice daily Aggressive sliding scale insulin Monitor oxygen saturation Home medication will be reconciled Get D-dimer, LDH, CRP, ferritin, DVT prophylaxis Lovenox 40 mg subcu daily GI prophylaxis Pepcid 20 mg p.o. twice daily CODE STATUS patient is full code
[2020-06-19] MEDS ORDERED: Bisacodyl 10 MG SUPP PR PRN (15:09)
[2020-06-19] MEDS ORDERED: Guaifenesin DM 100-10/5 ML UDCUP PO PRN (15:09)
[2020-06-19] MEDS ORDERED: Ondansetron ODT 4 MG TAB PO PRN (15:09)
[2020-06-19] MEDS ORDERED: Ondansetron PF 4 MG/2 ML Vial IVP PRN (15:09)
[2020-06-19] MEDS ORDERED: Loperamide HCl 2 MG CAP PO PRN (15:09)
[2020-06-19] MEDS ORDERED: Zolpidem Tartrate 5 MG TAB PO PRN (15:09)
[2020-06-19] MEDS ORDERED: Calcium Carbonate 500 MG ChewTAB PO PRN (15:09)
[2020-06-19] MEDS ORDERED: Senokot S 8.6-50 MG TAB PO PRN (15:09)
[2020-06-19] MEDS ORDERED: Dextrose 5% in Water 1,000 ML IV PRN (15:11)
[2020-06-19] MEDS ORDERED: Dextrose 50% Abboject 50 ML SYRINGE SLOW IVP PRN (15:11)
[2020-06-19] MEDS ORDERED: methylPREDNISolone Sod Succ 40 MG VIAL ONE (15:56)
[2020-06-19 17:06] LABS: SARS-CoV-2 NAA Rapid Test Not Detected (NotDetected)
[2020-06-19] MEDS ORDERED: HumaLOG 300 UNITS/3 ML VIAL ONE (17:22)
[2020-06-19] MEDS: methylPREDNISolone Sod Succ/PF 125 MG/2 ML VIAL IVP SCH (17:37)
[2020-06-19 18:15] VITALS: BMI 43.7
[2020-06-19] MEDS: Budesonide 0.5 MG/2 ML NEB NEB SCH (18:54)
[2020-06-19] MEDS: AcetaZOLAMIDE 250 MG TAB PO SCH (20:30)
[2020-06-19] MEDS: Famotidine 20 MG TAB PO SCH (20:30)
[2020-06-19] MEDS: HumaLOG 300 UNITS/3 ML VIAL SC PRN (21:17)
[2020-06-20] MEDS: methylPREDNISolone Sod Succ/PF 125 MG/2 ML VIAL IVP SCH ×3 (00:01→16:03)
[2020-06-20 04:32] LABS: Hemoglobin A1c 7.7 % (4.0-6.0)
[2020-06-20 04:50] LABS: ALT (SGPT) 28 U/L (8-55); AST (SGOT) 20 U/L (5-34); Albumin 3.2 g/dL (3.5-5.0); Alkaline Phosphatase 65 U/L (40-110); Anion Gap 13 mmol/L (10-20); BUN (Urea Nitrogen) 9 mg/dL (9.8-20.1); Bilirubin, Total 0.5 mg/dL (0.2-1.2); Calc. Creatinine Clearance 153 mL/min (70-130); Calcium 8.7 mg/dL (7.8-10.44); Carbon Dioxide 32 mmol/L (22-29); Chloride 99 mmol/L (98-107); Globulin 2.8 g/dL (2.4-3.5); Glucose 347 mg/dL (70-105); Potassium 4.7 mmol/L (3.5-5.1); Sodium 139 mmol/L (136-145)
[2020-06-20] MEDS: Furosemide 40 MG/4 ML VIAL SLOW IVP SCH ×2 (05:10→13:08)
[2020-06-20 05:23] LABS: #Lymphocytes 0.3 thou/uL (1.20-3.40); #Monocytes 0.2 thou/uL (0.11-0.59); #Neutrophils 5.1 thou/uL (1.40-6.50); %Eosinophils 0.4 % (0.0-10.0); %Lymphocytes 5.7 % (21.0-51.0); %Monocytes 3.7 % (0.0-10.0); %Neutrophils 90.2 % (42.0-75.0); Mean Corpuscular Hemoglobin 29.2 pg (27.0-31.0); Mean Corpuscular Volume 88.5 fL (78.0-98.0); Mean Platelet Volume 9.9 fL (7.4-10.4); Platelet Count 193 thou/uL (130-400); RBC Distribution Width 16.6 % (11.5-14.5); White Blood Cell (WBC) Count 5.6 thou/uL (4.8-10.8)
[2020-06-20] MEDS: Acetaminophen 325 MG TAB PO PRN ×2 (05:33→10:29)
[2020-06-20] MEDS: HumaLOG 300 UNITS/3 ML VIAL SC PRN ×3 (05:33→16:32)
[2020-06-20] MEDS: Budesonide 0.5 MG/2 ML NEB NEB SCH ×2 (06:58→18:54)
[2020-06-20] MEDS: Enoxaparin Sodium 40 MG/0.4 ML SYRINGE SC SCH (08:06)
[2020-06-20] MEDS: AcetaZOLAMIDE 250 MG TAB PO SCH ×2 (08:06→20:08)
[2020-06-20] MEDS: Famotidine 20 MG TAB PO SCH ×2 (08:06→20:08)
[2020-06-20] MEDS ORDERED: FLU VACC QS2020-21(6MOS UP)/PF 60 MCG/0.5 ML SYRINGE IM ONE (09:00)
[2020-06-20] MEDS ORDERED: Insulin Glargine 15 UNITS in Pre-Filled Syringe SC SCH (11:15)
[2020-06-20] MEDS: Insulin Glargine 15 UNITS in Pre-Filled Syringe SC SCH (20:08)
[2020-06-21] MEDS: methylPREDNISolone Sod Succ/PF 125 MG/2 ML VIAL IVP SCH ×3 (00:38→14:21)
[2020-06-21] MEDS: Acetaminophen 325 MG TAB PO PRN ×2 (00:40→21:18)
[2020-06-21] MEDS: Furosemide 40 MG/4 ML VIAL SLOW IVP SCH ×2 (05:47→14:22)
[2020-06-21] MEDS: HumaLOG 300 UNITS/3 ML VIAL SC PRN ×3 (06:06→21:53)
[2020-06-21] MEDS: Budesonide 0.5 MG/2 ML NEB NEB SCH ×2 (07:05→19:26)
--- NOTE | 2020-06-21 09:39 | PDOC.HOSPP ---
- Subjective Encounter Date: 06/20/20 Encounter Time: 15:00 Subjective: Patient seen and examined for respiratory failure. Shortness of breath improving. Denies any fever or chills. Currently on 3 L home oxygen. Her CPAP machine is broken. Mild dry cough reported. - Objective Vital Signs & Weight: Vital Signs (12 hours) Temp Pulse Resp BP Pulse Ox 06/21/20 07:06 96 14 06/21/20 03:34 98.5 F 87 18 153/84 H 92 L 06/21/20 00:00 79 Weight Weight 258 lb 8 oz I&O: 06/20/20 06/21/20 06/22/20 06:59 06:59 06:59 Intake Total 524 2144 Output Total 3000 Balance 524 856 Result Diagrams: 06/20/20 03:59 06/21/20 10:25 Additional Labs: Accuchecks 06/21/20 06/20/20 06/20/20 05:51 19:50 16:19 POC Glucose 271 H 235 H 268 H 06/20/20 10:19 POC Glucose 360 H Abnormal Lab Results - Last 48 hrs 06/19/20 09:40: Bicarbonate Actual 34.5 H, ABG pH 7.34 L, ABG pCO2 66.1 H*, ABG pO2 56.6 L*, ABG O2 Sat (Measured) 86.3 L*, ABG Base Excess 5.8 H, ABG Hematocrit 50.0 H, ABG Hemoglobin 17.1 H, ABG Oxyhemoglobin 82.9 L, ABG Carboxyhemoglobin 3.6 H, ABG Deoxyhemoglobin 13.2 H, A-a O2 Gradient 117.455 H, Potassium 3.50 L 06/19/20 09:51: RBC 6.20 H, Hgb 16.6 H, Hct 54.1 H, MCH 26.7 L, MCHC 30.6 L, RDW 16.6 H 06/19/20 09:51: Chloride 97 L, Carbon Dioxide 37 H, BUN 7 L 06/19/20 09:51: B-Natriuretic Peptide 569.4 H 06/19/20 15:44: Lactate Dehydrogenase 257 H 06/19/20 15:44: C-Reactive Protein 1.81 H Radiology Reviewed by me: Yes (Chest x-ray showed pulmonary vascular congestion) EKG Reviewed by me: Yes (Sinus rhythm on telemetry) Hospitalist ROS - Review of Systems Cardiovascular: denies: chest pain, palpitations, orthopnea, paroxysmal noc. dyspnea, edema, light headedness, other Gastrointestinal: denies: nausea, vomiting, abdominal pain, diarrhea, constipation, melena, hematochezia, other - Medication Medications: Active Medications Generic Name Dose Route Start Last Admin Trade Name Freq PRN Reason Stop Dose Admin Acetaminophen 650 mg 06/19/20 15:09 06/21/20 00:40 Acetaminophen 325 Mg Tab PO 650 mg Q4H PRN Administration Headache/Fever/Mild Pain (1-3) Acetazolamide 250 mg 06/19/20 21:00 06/20/20 20:08 Acetazolamide 250 Mg Tab PO 250 mg BID CARISSA Administration Albuterol/Ipratropium 3 ml 06/19/20 19:00 06/21/20 07:06 Ipratropium/Albuterol Sulfate 3 Ml Neb NEB 3 ml [id number] CARISSA Administration Budesonide 0.5 mg 06/19/20 18:30 06/21/20 07:05 Budesonide 0.5 Mg/2 Ml Neb NEB 0.5 mg BID-RT CARISSA Administration Enoxaparin Sodium 40 mg 06/20/20 09:00 06/20/20 08:06 Enoxaparin Sodium 40 Mg/0.4 Ml Syringe SC 40 mg 0900 CARISSA Administration Famotidine 20 mg 06/19/20 21:00 06/20/20 20:08 Famotidine 20 Mg Tab PO 20 mg BID CARISSA Administration Furosemide 40 mg 06/20/20 06:00 06/21/20 05:47 Furosemide 40 Mg/4 Ml Vial SLOW IVP 40 mg 0600,1400 CARISSA Administration Insulin Glargine 15 units/ 0.15 mls @ 0 mls/hr 06/20/20 21:00 06/20/20 20:08 Miscellaneous Medication SC 0.15 mls BID CARISSA Administration Insulin Human Lispro 0 units 06/19/20 15:11 06/21/20 06:06 Humalog 300 Units/3 Ml Vial SC 9 unit .AGGRESSIVE SLIDING PRN Administration Aggressive Correctional Scale Insulin Human Lispro 0 units 06/19/20 15:11 06/19/20 21:17 Humalog 300 Units/3 Ml Vial SC 4 unit .BEDTIME SLIDING SC PRN Administration Bedtime Correctional Scale Methylprednisolone Sodium Succinate 40 mg 06/19/20 16:00 06/21/20 00:38 Methylprednisolone Sod Succ/Pf 125 Mg/2 Ml Vial IVP 40 mg 0800,1600,2359 CARISSA Administration - Exam General Appearance: ill appearing General - other findings: In respiratory distress Heart: RRR, no gallops, no rubs, normal peripheral pulses Respiratory: no wheezes, normal chest expansion, rales, rhonchi, tachypneic Gastrointestinal: soft, normal bowel sounds, no guarding, no rigidity Extremities: no cyanosis, no clubbing Neurological: no new deficit Psychiatric: normal affect, A&O x 3 Hosp A/P - Plan DVT proph w/SCDs Patient is a 55-year-old female with morbid obesity, COPD with chronic respiratory failure on home oxygen 3 L nasal cannula especially at night and obstructive sleep apnea not on CPAP presented to the emergency room at [facility] in [place] with worsening shortness of breath and hypoxia with O2 sats of 57% on room air. Her O2 concentrator has stopped working. Her work-up was consistent with COPD/CHF exacerbation. She was transferred to this facility for hospital admission. Please refer to the history and physical for further details. The patient was admitted to the telemetry unit with above diagnosis. She was started on steroids along with IV Lasix, O2 supplementation with nebulizer treatment. Assessment: Acute on chronic hypoxic and hypercapnic respiratory failurePOA Acute on chronic diastolic heart failure COPD exacerbation Obstructive sleep apnea not on CPAP Hypertension Morbid obesity with a BMI of 44.4 Diabetes mellitus type 2 with hyperglycemia due to steroids Codeine allergy Anxiety History of pulmonary embolism Degenerative joint disease Plan: Continue O2 supplementation with IV steroids and Lasix. Continue nebulizer treatment. Continue Symbicort. Continue fluid restriction patient was advised to get a sleep study as outpatient monitor labs on the daily basis. Add doxycycline
[2020-06-21] MEDS: AcetaZOLAMIDE 250 MG TAB PO SCH (09:42)
[2020-06-21] MEDS: Famotidine 20 MG TAB PO SCH ×3 (09:42→21:18)
[2020-06-21] MEDS: Enoxaparin Sodium 40 MG/0.4 ML SYRINGE SC SCH (09:42)
[2020-06-21] MEDS: Insulin Glargine 15 UNITS in Pre-Filled Syringe SC SCH ×2 (09:43→21:19)
[2020-06-21] MEDS ORDERED: Doxycycline 100 MG CAP PO SCH (10:15)
[2020-06-21 10:55] LABS: BUN (Urea Nitrogen) 16 mg/dL (9.8-20.1); Calc. Creatinine Clearance 160 mL/min (70-130); Calcium 8.9 mg/dL (7.8-10.44); Glucose 202 mg/dL (70-105)
[2020-06-21 11:05] LABS: Anion Gap 17 mmol/L (10-20); Carbon Dioxide 33 mmol/L (22-29); Chloride 96 mmol/L (98-107); Potassium 3.9 mmol/L (3.5-5.1); Sodium 142 mmol/L (136-145)
[2020-06-21] MEDS: Doxycycline 100 MG CAP PO SCH (21:18)
--- NOTE | 2020-06-21 23:49 | PDOC.HOSPP ---
- Subjective Encounter Date: 06/21/20 Encounter Time: 16:30 Subjective: Patient seen and examined for respiratory failure. Shortness of breath improving. No chest pain or palpitations. No fever or chills. - Objective Vital Signs & Weight: Vital Signs (12 hours) Temp Pulse Pulse Pulse Resp BP BP 06/21/20 19:55 98.7 F 68 14 06/21/20 19:25 87 18 06/21/20 15:20 98.5 F 81 16 06/21/20 12:50 84 80 171/85 H 144/81 H BP BP Pulse Ox 06/21/20 19:55 128/58 L 94 L 06/21/20 19:25 90 L 06/21/20 15:20 142/69 H 94 L 06/21/20 12:50 Weight Weight 254 lb 11.2 oz I&O: 06/20/20 06/21/20 06/22/20 06:59 06:59 06:59 Intake Total 524 2144 Output Total 3000 Balance 524 -856 Result Diagrams: 06/20/20 03:59 06/21/20 10:25 Additional Labs: Accuchecks 06/21/20 06/21/20 06/21/20 20:23 17:52 05:51 POC Glucose 335 H 326 H 271 H Abnormal Lab Results - Last 48 hrs 06/20/20 03:59: Carbon Dioxide 32 H, BUN 9 L, Albumin 3.2 L, Albumin/Globulin Ratio 1.1 L 06/20/20 03:59: RBC 5.80 H, Hgb 17.0 H, Hct 51.4 H, RDW 16.6 H, Neutrophils % 90.2 H, Lymphocytes % 5.7 L, Lymphocytes # 0.3 L 06/20/20 03:59: Hemoglobin A1c 7.7 H 06/21/20 10:25: Chloride 96 L, Carbon Dioxide 33 H EKG Reviewed by me: Yes (Sinus rhythm on telemetry) Hospitalist ROS - Review of Systems Cardiovascular: reports: orthopnea, paroxysmal noc. dyspnea, edema. denies: chest pain, palpitations, light headedness, other Gastrointestinal: denies: nausea, vomiting, abdominal pain, diarrhea, constipation, melena, hematochezia, other Genitourinary: denies: dysuria, frequency, incontinence, hematuria, retention, other - Medication Medications: Active Medications Generic Name Dose Route Start Last Admin Trade Name Freq PRN Reason Stop Dose Admin Acetaminophen 650 mg 06/19/20 15:09 06/21/20 21:18 Acetaminophen 325 Mg Tab PO 650 mg Q4H PRN Administration Headache/Fever/Mild Pain (1-3) Albuterol/Ipratropium 3 ml 06/19/20 19:00 06/21/20 19:25 Ipratropium/Albuterol Sulfate 3 Ml Neb NEB 3 ml [id number] CARISSA Administration Budesonide 0.5 mg 06/19/20 18:30 06/21/20 19:26 Budesonide 0.5 Mg/2 Ml Neb NEB 0.5 mg BID-RT CARISSA Administration Doxycycline Hyclate 100 mg 06/21/20 21:00 06/21/20 21:18 Doxycycline 100 Mg Cap PO 100 mg BID CARISSA Administration Enoxaparin Sodium 40 mg 06/20/20 09:00 06/21/20 09:42 Enoxaparin Sodium 40 Mg/0.4 Ml Syringe SC 40 mg 0900 CARISSA Administration Famotidine 20 mg 06/19/20 21:00 06/21/20 21:18 Famotidine 20 Mg Tab PO 20 mg BID CARISSA Administration Furosemide 40 mg 06/20/20 06:00 06/21/20 14:22 Furosemide 40 Mg/4 Ml Vial SLOW IVP 40 mg 0600,1400 CARISSA Administration Insulin Glargine 15 units/ 0.15 mls @ 0 mls/hr 06/20/20 21:00 06/21/20 21:19 Miscellaneous Medication SC 0.15 mls BID CARISSA Administration Insulin Human Lispro 0 units 06/19/20 15:11 06/21/20 18:05 Humalog 300 Units/3 Ml Vial SC 11 unit .AGGRESSIVE SLIDING PRN Administration Aggressive Correctional Scale Insulin Human Lispro 0 units 06/19/20 15:11 06/21/20 21:53 Humalog 300 Units/3 Ml Vial SC 4 unit .BEDTIME SLIDING SC PRN Administration Bedtime Correctional Scale - Exam General Appearance: ill appearing Neck: supple Heart: RRR, no gallops Respiratory: rales, rhonchi, tachypneic, wheezes Gastrointestinal: soft, non-tender, normal bowel sounds Extremities: 1+ LE edema Hosp A/P - Plan DVT proph w/SCDs Patient is a 55-year-old female with morbid obesity, COPD with chronic respiratory failure on home oxygen 3 L nasal cannula especially at night and obstructive sleep apnea not on CPAP presented to the emergency room at [facility] in [place] with worsening shortness of breath and hypoxia with O2 sats of 57% on room air. Her O2 concentrator has stopped working. Her work-up was consistent with COPD/CHF exacerbation. She was transferred to this facility for hospital admission. Please refer to the history and physical for further details. The patient was admitted to the telemetry unit with above diagnosis. She was started on steroids along with IV Lasix, O2 supplementation with nebulizer treatment. Assessment: Acute on chronic hypoxic and hypercapnic respiratory failurePOA Acute on chronic diastolic heart failure COPD exacerbation Obstructive sleep apnea not on CPAP Hypertension Morbid obesity with a BMI of 44.4 Diabetes mellitus type 2 with hyperglycemia due to steroids Codeine allergy Anxiety History of pulmonary embolism Degenerative joint disease Plan: Continue O2 supplementation. Continue IV Lasix. Change IV steroids to po. Continue current dose of Lantus with sliding scale. Discontinue acetazolamide. Consult showcase maker for home O2 sat of. Her O2 concentrator has stopped working. A.m. labs. Continue fluid restriction. Continue cardiac rehab. Continue other medications as above
[2020-06-22 04:52] LABS: ALT (SGPT) 21 U/L (8-55); AST (SGOT) 9 U/L (5-34); Albumin 3.2 g/dL (3.5-5.0); Alkaline Phosphatase 55 U/L (40-110); Anion Gap 11 mmol/L (10-20); BUN (Urea Nitrogen) 17 mg/dL (9.8-20.1); Bilirubin, Total 0.5 mg/dL (0.2-1.2); Calc. Creatinine Clearance 153 mL/min (70-130); Calcium 8.8 mg/dL (7.8-10.44); Carbon Dioxide 37 mmol/L (22-29); Chloride 97 mmol/L (98-107); Globulin 2.3 g/dL (2.4-3.5); Glucose 262 mg/dL (70-105); Protein, Total 5.5 g/dL (6.0-8.3); Sodium 141 mmol/L (136-145)
[2020-06-22] MEDS: Furosemide 40 MG/4 ML VIAL SLOW IVP SCH ×4 (05:55→18:08)
[2020-06-22] MEDS: HumaLOG 300 UNITS/3 ML VIAL SC PRN ×4 (05:57→21:10)
[2020-06-22 06:08] LABS: #Lymphocytes 0.4 thou/uL (1.20-3.40); #Monocytes 0.5 thou/uL (0.11-0.59); #Neutrophils 5.1 thou/uL (1.40-6.50); %Eosinophils 0.3 % (0.0-10.0); %Lymphocytes 6.1 % (21.0-51.0); %Monocytes 8.5 % (0.0-10.0); %Neutrophils 85.1 % (42.0-75.0); Hemoglobin 15.7 g/dL (12.0-16.0); Mean Corpuscular HGB CONC 33.3 g/dL (32.0-36.0); Mean Corpuscular Hemoglobin 29.1 pg (27.0-31.0); Mean Corpuscular Volume 87.5 fL (78.0-98.0); Mean Platelet Volume 10.3 fL (7.4-10.4); Platelet Count 182 thou/uL (130-400); RBC Distribution Width 16.3 % (11.5-14.5); Red Blood Cell (RBC) Count 5.38 mill/uL (4.20-5.40); White Blood Cell (WBC) Count 5.9 thou/uL (4.8-10.8)
[2020-06-22] MEDS: Budesonide 0.5 MG/2 ML NEB NEB SCH ×2 (07:08→18:29)
[2020-06-22] MEDS ORDERED: predniSONE 20 MG TAB PO SCH (08:00)
[2020-06-22] MEDS ORDERED: AcetaZOLAMIDE 250 MG TAB PO SCH (10:00)
[2020-06-22] MEDS: Doxycycline 100 MG CAP PO SCH ×2 (10:14→21:12)
[2020-06-22] MEDS: Aspirin 81 mg Enteric Coated Tablet PO SCH (10:14)
[2020-06-22] MEDS: Insulin Glargine 15 UNITS in Pre-Filled Syringe SC SCH ×2 (10:14→21:11)
[2020-06-22] MEDS: predniSONE 20 MG TAB PO SCH (10:15)
[2020-06-22] MEDS: Enoxaparin Sodium 40 MG/0.4 ML SYRINGE SC SCH (10:15)
[2020-06-22] MEDS: Acetaminophen 325 MG TAB PO PRN ×2 (18:08→21:15)
--- NOTE | 2020-06-22 20:27 | PDOC.HOSPP ---
- Subjective Encounter Date: 06/22/20 Encounter Time: 11:30 Subjective: Patient seen and examined for respiratory failure due to COPD/CHF exacerbation. Requiring O2 supplementation. Short of breath on [id number] exertion. Mild dry cough. No chest pain or palpitations. - Objective Vital Signs & Weight: Vital Signs (12 hours) Temp Pulse Resp BP Pulse Ox 06/22/20 18:29 81 16 93 L 06/22/20 14:35 88 14 06/22/20 12:07 98.3 F 80 18 148/100 H 95 06/22/20 10:21 98.0 F 82 18 161/72 H 96 06/22/20 10:20 96 Weight Weight 248 lb I&O: 06/21/20 06/22/20 06/23/20 06:59 06:59 06:59 Intake Total 2144 960 1450 Output Total 3000 3500 Balance -856 960 -2050 Result Diagrams: 06/22/20 04:09 06/22/20 04:09 Additional Labs: Accuchecks 06/22/20 06/22/20 06/21/20 18:06 05:48 20:23 POC Glucose 243 H 215 H 335 H Abnormal Lab Results - Last 48 hrs 06/21/20 10:25: Chloride 96 L, Carbon Dioxide 33 H 06/22/20 04:09: Chloride 97 L, Carbon Dioxide 37 H, Serum Total Protein 5.5 L, Albumin 3.2 L, Globulin 2.3 L 06/22/20 04:09: RDW 16.3 H, Neutrophils % 85.1 H, Lymphocytes % 6.1 L, Lymphocytes # 0.4 L EKG Reviewed by me: Yes (Sinus rhythm on telemetry) Hospitalist ROS - Review of Systems Gastrointestinal: denies: nausea, vomiting, abdominal pain, diarrhea, constipat ion, melena, hematochezia, other Genitourinary: denies: dysuria, frequency, incontinence, hematuria, retention, other - Medication Medications: Active Medications Generic Name Dose Route Start Last Admin Trade Name Freq PRN Reason Stop Dose Admin Acetaminophen 650 mg 06/19/20 15:09 06/22/20 18:08 Acetaminophen 325 Mg Tab PO 650 mg Q4H PRN Administration Headache/Fever/Mild Pain (1-3) Albuterol/Ipratropium 3 ml 06/19/20 19:00 06/22/20 18:29 Ipratropium/Albuterol Sulfate 3 Ml Neb NEB 3 ml [id number] CARISSA Administration Aspirin 81 mg 06/22/20 09:00 06/22/20 10:14 Aspirin 81 Mg Enteric Coated Tablet PO 81 mg DAILY CARISSA Administration Budesonide 0.5 mg 06/19/20 18:30 06/22/20 18:29 Budesonide 0.5 Mg/2 Ml Neb NEB 0.5 mg BID-RT CARISSA Administration Doxycycline Hyclate 100 mg 06/21/20 21:00 06/22/20 10:14 Doxycycline 100 Mg Cap PO 100 mg BID CARISSA Administration Enoxaparin Sodium 40 mg 06/20/20 09:00 06/22/20 10:15 Enoxaparin Sodium 40 Mg/0.4 Ml Syringe SC 40 mg 0900 CARISSA Administration Famotidine 20 mg 06/19/20 21:00 06/21/20 21:18 Famotidine 20 Mg Tab PO 20 mg BID CARISSA Administration Furosemide 40 mg 06/20/20 06:00 06/22/20 18:08 Furosemide 40 Mg/4 Ml Vial SLOW IVP 40 mg 0600,1400 CARISSA Administration Insulin Glargine 15 units/ 0.15 mls @ 0 mls/hr 06/20/20 21:00 06/22/20 10:14 Miscellaneous Medication SC 0.15 mls BID CARISSA Administration Insulin Human Lispro 0 units 06/19/20 15:11 06/22/20 18:08 Humalog 300 Units/3 Ml Vial SC 6 unit .AGGRESSIVE SLIDING PRN Administration Aggressive Correctional Scale Insulin Human Lispro 0 units 06/19/20 15:11 06/21/20 21:53 Humalog 300 Units/3 Ml Vial SC 4 unit .BEDTIME SLIDING SC PRN Administration Bedtime Correctional Scale Prednisone 20 mg 06/22/20 08:00 06/22/20 10:15 Prednisone 20 Mg Tab PO 20 mg QAM-WM CARISSA Administration - Exam General Appearance: awake alert General - other findings: Patient in respiratory distress on mild exertion Neck: no JVD Heart: RRR, no gallops Respiratory: no wheezes, no ronchi Gastrointestinal: soft, non-distended Extremities: no cyanosis, 1+ LE edema Neurological: no new deficit Psychiatric: normal affect, A&O x 3 Hosp A/P - Plan DVT proph w/SCDs Patient is a 55-year-old female with morbid obesity, COPD with chronic respiratory failure on home oxygen 3 L nasal cannula especially at night and obstructive sleep apnea not on CPAP presented to the emergency room at [facility] in [place] with worsening shortness of breath and hypoxia with O2 sats of 57% on room air. Her O2 concentrator has stopped working. Her work-up was consistent with COPD/CHF exacerbation. She was transferred to this facility for hospital admission. Please refer to the history and physical for further details. The patient was admitted to the telemetry unit with above diagnosis. She was started on steroids along with IV Lasix, O2 supplementation with nebulizer treatment. Assessment: Acute on chronic hypoxic and hypercapnic respiratory failure Acute on chronic diastolic heart failure COPD exacerbation Obstructive sleep apnea not on CPAP Hypertension Morbid obesity with a BMI of 44.4 Diabetes mellitus type 2 with hyperglycemia due to steroids Codeine allergy Anxiety History of pulmonary embolism Degenerative joint disease Plan: Continue IV Lasix. Add acetazolamide due to metabolic alkalosis. Continue nebulizer treatment. Continue fluid restriction. Continue sliding scale with current dose of Lantus. Continue cardiac rehab. DVT prophylaxis.
[2020-06-22] MEDS: Famotidine 20 MG TAB PO SCH (21:12)
[2020-06-22] MEDS: AcetaZOLAMIDE 250 MG TAB PO SCH (21:12)
[2020-06-23 05:17] LABS: ALT (SGPT) 22 U/L (8-55); AST (SGOT) 11 U/L (5-34); Alkaline Phosphatase 50 U/L (40-110); Anion Gap 13 mmol/L (10-20); BUN (Urea Nitrogen) 16 mg/dL (9.8-20.1); Bilirubin, Total 0.6 mg/dL (0.2-1.2); Calc. Creatinine Clearance 165 mL/min (70-130); Calcium 8.3 mg/dL (7.8-10.44); Carbon Dioxide 33 mmol/L (22-29); Chloride 99 mmol/L (98-107); Globulin 2.2 g/dL (2.4-3.5); Glucose 132 mg/dL (70-105); Magnesium 1.9 mg/dL (1.6-2.6); Potassium 3.8 mmol/L (3.5-5.1); Protein, Total 5.2 g/dL (6.0-8.3); Sodium 141 mmol/L (136-145)
[2020-06-23 05:18] LABS: #Eosinphils 0.1 thou/uL (0.0-0.7); #Lymphocytes 0.7 thou/uL (1.20-3.40); #Monocytes 0.4 thou/uL (0.11-0.59); #Neutrophils 3.2 thou/uL (1.40-6.50); %Basophils 0.1 % (0.0-1.0); %Eosinophils 1.2 % (0.0-10.0); %Lymphocytes 15.5 % (21.0-51.0); %Monocytes 9.9 % (0.0-10.0); %Neutrophils 73.3 % (42.0-75.0); Hemoglobin 15.6 g/dL (12.0-16.0); MDiff Complete? YES; Mean Corpuscular HGB CONC 33.5 g/dL (32.0-36.0); Mean Corpuscular Hemoglobin 29.8 pg (27.0-31.0); Mean Platelet Volume 9.8 fL (7.4-10.4); Platelet Count 164 thou/uL (130-400); Platelet Morphology Comment Appears Adequate; RBC Distribution Width 16.2 % (11.5-14.5); Red Blood Cell (RBC) Count 5.22 mill/uL (4.20-5.40); Target Cells SLIGHT = 2-5 cells (100X) (0-1/hpf); White Blood Cell (WBC) Count 4.3 thou/uL (4.8-10.8)
[2020-06-23] MEDS: Furosemide 40 MG/4 ML VIAL SLOW IVP SCH ×2 (06:28→14:11)
[2020-06-23] MEDS: Budesonide 0.5 MG/2 ML NEB NEB SCH ×2 (06:42→18:37)
[2020-06-23] MEDS: Insulin Glargine 15 UNITS in Pre-Filled Syringe SC SCH ×2 (08:26→20:50)
[2020-06-23] MEDS: Doxycycline 100 MG CAP PO SCH ×2 (08:27→20:51)
[2020-06-23] MEDS: predniSONE 20 MG TAB PO SCH (08:27)
[2020-06-23] MEDS: AcetaZOLAMIDE 250 MG TAB PO SCH (08:27)
[2020-06-23] MEDS: Famotidine 20 MG TAB PO SCH ×2 (08:28→20:51)
[2020-06-23] MEDS: Aspirin 81 mg Enteric Coated Tablet PO SCH (08:28)
[2020-06-23] MEDS: Enoxaparin Sodium 40 MG/0.4 ML SYRINGE SC SCH (08:28)
[2020-06-23] MEDS: HumaLOG 300 UNITS/3 ML VIAL SC PRN ×2 (11:51→17:29)
[2020-06-23] MEDS ORDERED: Magnesium 2 GM/50 ML 2 GM in Premix Bag 1 BAG IVPB SCH (13:00)
--- NOTE | 2020-06-23 14:23 | PDOC.HOSPP ---
- Subjective Encounter Date: 06/23/20 Encounter Time: 14:15 Subjective: Patient seen and examined for CHF/COPD exacerbation. Still short of breath on [id number] exertion. Had tachyarrhythmia on the monitor per RN. Denies any chest pain, nausea or vomiting. - Objective Vital Signs & Weight: Vital Signs (12 hours) Temp Pulse Resp BP Pulse Ox 06/23/20 14:19 93 16 06/23/20 11:46 98.3 F 93 16 132/63 95 06/23/20 07:34 98.2 F 82 17 133/73 94 L 06/23/20 06:42 82 16 06/23/20 04:54 98.5 F 73 19 131/68 94 L Weight Weight 249 lb 3.2 oz I&O: 06/22/20 06/23/20 06/24/20 06:59 06:59 06:59 Intake Total 960 1450 1004 Output Total 3500 2400 Balance 390 -4244 -7118 Result Diagrams: 06/23/20 04:10 06/23/20 04:10 Additional Labs: Accuchecks 06/23/20 06/23/20 06/23/20 11:48 08:25 06:20 POC Glucose 242 H 113 H 102 H 06/22/20 06/22/20 20:48 18:06 POC Glucose 216 H 243 H Abnormal Lab Results - Last 48 hrs 06/22/20 04:09: Chloride 97 L, Carbon Dioxide 37 H, Serum Total Protein 5.5 L, Albumin 3.2 L, Globulin 2.3 L 06/22/20 04:09: RDW 16.3 H, Neutrophils % 85.1 H, Lymphocytes % 6.1 L, Lymphocytes # 0.4 L 06/23/20 04:10: Carbon Dioxide 33 H, Serum Total Protein 5.2 L, Albumin 3.0 L, Globulin 2.2 L 06/23/20 04:10: WBC 4.3 L, RDW 16.2 H, Lymphocytes % 15.5 L, Lymphocytes # 0.7 L EKG Reviewed by me: Yes (Sinus rhythm on telemetry) Hospitalist ROS - Review of Systems Gastrointestinal: denies: nausea, vomiting, abdominal pain, diarrhea, constipation, melena, hematochezia, other Genitourinary: denies: dysuria, frequency, incontinence, hematuria, retention, other - Medication Medications: Active Medications Generic Name Dose Route Start Last Admin Trade Name Freq PRN Reason Stop Dose Admin Acetaminophen 650 mg 06/19/20 15:09 06/22/20 21:15 Acetaminophen 325 Mg Tab PO 650 mg Q4H PRN Administration Headache/Fever/Mild Pain (1-3) Acetazolamide 250 mg 06/22/20 21:00 06/23/20 08:27 Acetazolamide 250 Mg Tab PO 250 mg BID CARISSA Administration Albuterol/Ipratropium 3 ml 06/19/20 19:00 06/23/20 14:19 Ipratropium/Albuterol Sulfate 3 Ml Neb NEB 3 ml [id number] CARISSA Administration Aspirin 81 mg 06/22/20 09:00 06/23/20 08:28 Aspirin 81 Mg Enteric Coated Tablet PO 81 mg DAILY CARISSA Administration Budesonide 0.5 mg 06/19/20 18:30 06/23/20 06:42 Budesonide 0.5 Mg/2 Ml Neb NEB 0.5 mg BID-RT CARISSA Administration Doxycycline Hyclate 100 mg 06/21/20 21:00 06/23/20 08:27 Doxycycline 100 Mg Cap PO 100 mg BID CARISSA Administration Enoxaparin Sodium 40 mg 06/20/20 09:00 06/23/20 08:28 Enoxaparin Sodium 40 Mg/0.4 Ml Syringe SC 40 mg 0900 CARISSA Administration Famotidine 20 mg 06/19/20 21:00 06/23/20 08:28 Famotidine 20 Mg Tab PO 20 mg BID CARISSA Administration Furosemide 40 mg 06/20/20 06:00 06/23/20 14:11 Furosemide 40 Mg/4 Ml Vial SLOW IVP 40 mg 0600,1400 CARISSA Administration Insulin Glargine 15 units/ 0.15 mls @ 0 mls/hr 06/20/20 21:00 06/23/20 08:26 Miscellaneous Medication SC 0.15 mls BID CARISSA Administration Magnesium Sulfate 2 gm/ Device 50 mls @ 50 mls/hr 06/23/20 13:00 06/23/20 14:11 IVPB 06/23/20 15:00 50 mls NOW CARISSA Administration Insulin Human Lispro 0 units 06/19/20 15:11 06/23/20 11:51 Humalog 300 Units/3 Ml Vial SC 6 unit .AGGRESSIVE SLIDING PRN Administration Aggressive Correctional Scale Insulin Human Lispro 0 units 06/19/20 15:11 06/22/20 21:10 Humalog 300 Units/3 Ml Vial SC 2 unit .BEDTIME SLIDING SC PRN Administration Bedtime Correctional Scale Prednisone 20 mg 06/22/20 08:00 06/23/20 08:27 Prednisone 20 Mg Tab PO 20 mg QAM-WM CARISSA Administration - Exam General Appearance: NAD (Addressed) Neck: supple Heart: RRR, no gallops Respiratory: no wheezes, rales (Rales at bases), rhonchi Gastrointestinal: soft, non-tender, normal bowel sounds Extremities: no cyanosis Neurological: no new deficit Psychiatric: normal affect, A&O x 3 Hosp A/P - Plan DVT proph w/SCDs Patient is a 55-year-old female with morbid obesity, COPD with chronic respiratory failure on home oxygen 3 L nasal cannula especially at night and obstructive sleep apnea not on CPAP presented to the emergency room at [facility] in [place] with worsening shortness of breath and hypoxia with O2 sats of 57% on room air. Her O2 concentrator has stopped working. Her work-up was consistent with COPD/CHF exacerbation. She was transferred to this facility for hospital admission. Please refer to the history and physical for further details. The patient was admitted to the telemetry unit with above diagnosis. She was started on steroids along with IV Lasix, O2 supplementation with nebulizer treatment. Developed NSVT on 06/23. Cardiology was consulted. Assessment: Acute on chronic hypoxic and hypercapnic respiratory failure Acute on chronic diastolic heart failure COPD exacerbation NSVT Hypomagnesemia Obstructive sleep apnea not on CPAP Hypertension Morbid obesity with a BMI of 44.4 Diabetes mellitus type 2 with hyperglycemia due to steroids Codeine allergy Anxiety History of pulmonary embolism Degenerative joint disease Plan: Continue IV Lasix. Replace magnesium. Continue fluid restriction. Discontinue scheduled nebulizer treatment due to tachyarrhythmia. Continue Pulmicort. Taper prednisone. Recheck labs in a.m. Continue current dose of Lantus with aggressive sliding scale.
[2020-06-23] MEDS: Acetaminophen 325 MG TAB PO PRN (20:51)
[2020-06-24] MEDS ORDERED: Budesonide 0.5 MG/2 ML NEB ONE (04:04)
[2020-06-24] MEDS: Budesonide 0.5 MG/2 ML NEB NEB SCH ×2 (04:37→18:22)
[2020-06-24 05:19] LABS: Anion Gap 11 mmol/L (10-20); BUN (Urea Nitrogen) 18 mg/dL (9.8-20.1); Calc. Creatinine Clearance 165 mL/min (70-130); Calcium 8.6 mg/dL (7.8-10.44); Carbon Dioxide 35 mmol/L (22-29); Chloride 100 mmol/L (98-107); Glucose 146 mg/dL (70-105); Magnesium 2.2 mg/dL (1.6-2.6); Potassium 4.4 mmol/L (3.5-5.1); Sodium 142 mmol/L (136-145)
[2020-06-24] MEDS: HumaLOG 300 UNITS/3 ML VIAL SC PRN ×3 (06:12→17:43)
[2020-06-24] MEDS: Furosemide 40 MG/4 ML VIAL SLOW IVP SCH ×2 (06:13→13:57)
[2020-06-24] MEDS: predniSONE 20 MG TAB PO SCH (08:31)
[2020-06-24] MEDS: Enoxaparin Sodium 40 MG/0.4 ML SYRINGE SC SCH (08:31)
[2020-06-24] MEDS: Doxycycline 100 MG CAP PO SCH ×2 (08:31→21:51)
[2020-06-24] MEDS: Aspirin 81 mg Enteric Coated Tablet PO SCH (08:31)
[2020-06-24] MEDS: Famotidine 20 MG TAB PO SCH ×2 (08:31→21:52)
[2020-06-24] MEDS: Insulin Glargine 15 UNITS in Pre-Filled Syringe SC SCH ×2 (08:32→21:52)
--- NOTE | 2020-06-24 16:10 | PDOC.HOSPP ---
- Subjective Encounter Date: 06/24/20 Encounter Time: 12:45 Subjective: Patient up in bed no complaints - Objective Vital Signs & Weight: Vital Signs (12 hours) Temp Pulse Resp BP BP Pulse Ox 06/24/20 12:00 98.1 F 75 18 125/93 H 96 06/24/20 08:00 96 06/24/20 07:33 97.9 F 88 18 122/71 06/24/20 04:28 90 16 95 Weight Weight 244 lb 14.4 oz I&O: 06/23/20 06/24/20 06/25/20 06:59 06:59 06:59 Intake Total 1450 2774 Output Total 3508 3127 Balance -5487 -5114 Result Diagrams: 06/23/20 04:10 06/24/20 04:21 Additional Labs: Accuchecks 06/24/20 06/24/20 06/23/20 10:43 05:29 20:01 POC Glucose 198 H 200 H 206 H 06/23/20 16:47 POC Glucose 196 H Hospitalist ROS - Review of Systems Respiratory: denies: cough, dry, shortness of breath, hemoptysis, SOB with exce rtion, pleuritic pain, sputum, wheezing, other Cardiovascular: denies: chest pain, palpitations, orthopnea, paroxysmal noc. dyspnea, edema, light headedness, other Gastrointestinal: denies: nausea, vomiting, abdominal pain, diarrhea, constipation, melena, hematochezia, other - Medication Medications: Active Medications Generic Name Dose Route Start Last Admin Trade Name Freq PRN Reason Stop Dose Admin Acetaminophen 650 mg 06/19/20 15:09 06/23/20 20:51 Acetaminophen 325 Mg Tab PO 650 mg Q4H PRN Administration Headache/Fever/Mild Pain (1-3) Aspirin 81 mg 06/22/20 09:00 06/24/20 08:31 Aspirin 81 Mg Enteric Coated Tablet PO 81 mg DAILY CARISSA Administration Budesonide 0.5 mg 06/19/20 18:30 06/24/20 04:37 Budesonide 0.5 Mg/2 Ml Neb NEB 0.5 mg BID-RT CARISSA Administration Doxycycline Hyclate 100 mg 06/21/20 21:00 06/24/20 08:31 Doxycycline 100 Mg Cap PO 100 mg BID CARISSA Administration Enoxaparin Sodium 40 mg 06/20/20 09:00 06/24/20 08:31 Enoxaparin Sodium 40 Mg/0.4 Ml Syringe SC 40 mg 0900 CARISSA Administration Famotidine 20 mg 06/19/20 21:00 06/24/20 08:31 Famotidine 20 Mg Tab PO 20 mg BID CARISSA Administration Furosemide 40 mg 06/20/20 06:00 06/24/20 13:57 Furosemide 40 Mg/4 Ml Vial SLOW IVP Not Given 0600,1400 [facility] Insulin Glargine 15 units/ 0.15 mls @ 0 mls/hr 06/20/20 21:00 06/24/20 08:32 Miscellaneous Medication SC 0.15 mls BID CARISSA Administration Insulin Human Lispro 0 units 06/19/20 15:11 06/24/20 11:48 Humalog 300 Units/3 Ml Vial SC 3 unit .AGGRESSIVE SLIDING PRN Administration Aggressive Correctional Scale Insulin Human Lispro 0 units 06/19/20 15:11 06/22/20 21:10 Humalog 300 Units/3 Ml Vial SC 2 unit .BEDTIME SLIDING SC PRN Administration Bedtime Correctional Scale Prednisone 20 mg 06/22/20 08:00 06/24/20 08:31 Prednisone 20 Mg Tab PO 20 mg QAM-WM CARISSA Administration - Exam Heart: negative: RRR, no murmur, no gallops, no rubs, normal peripheral pulses, irregular, diminshed peripheral pulses, murmur present, II/IV, III/IV Respiratory: negative: CTAB, no wheezes, no rales, no ronchi, normal chest expansion, no tachypnea, normal percussion, rales, rhonchi, tachypneic, wheezes Gastrointestinal: negative: soft, non-tender, non-distended, normal bowel sounds, no palpable masses, no hepatomegaly, no splenomegaly, no bruit, no guarding, no rigidity, tender to palpation, distended, diminished bowl sounds, voluntary guarding Extremities: negative: no cyanosis, no clubbing, no edema, 1+ LE edema, 2+ LE edema, clubbing Hosp A/P - Plan Patient is a 55-year-old female with morbid obesity, COPD with chronic respiratory failure on home oxygen 3 L nasal cannula especially at night and obstructive sleep apnea not on CPAP presented to the emergency room at [facility] in [place] with worsening shortness of breath and hypoxia with O2 sats of 57% on room air. Her O2 concentrator has stopped working. Her work-up was consistent with COPD/CHF exacerbation. She was transferred to this facility for hospital admission. Please refer to the history and physical for further details. The patient was admitted to the telemetry unit with above diagnosis. She was started on steroids along with IV Lasix, O2 supplementation with nebulizer treatment. Developed NSVT on 06/23. Cardiology was consulted. Assessment: Acute on chronic hypoxic and hypercapnic respiratory failure Acute on chronic diastolic heart failure COPD exacerbation NSVT Hypomagnesemia Obstructive sleep apnea not on CPAP Hypertension Morbid obesity with a BMI of 44.4 Diabetes mellitus type 2 with hyperglycemia due to steroids Codeine allergy Anxiety History of pulmonary embolism Degenerative joint disease Plan: Continue IV Lasix. Replace magnesium. Continue fluid restriction. Discontinue scheduled nebulizer treatment due to tachyarrhythmia. Continue Pulmicort. Taper prednisone. Recheck labs in a.m. Continue current dose of Lantus with aggressive sliding scale. 06/24 patient feels well possible discharge in a.m. Cardiology needs to keep patient 1 more day. Echocardiogram ordered.
[2020-06-24] MEDS: metFORMIN 500 MG TAB PO SCH (16:20)
--- NOTE | 2020-06-24 16:21 | CON ---
DATE OF CONSULTATION: CONSULTING PHYSICIAN: Prieto Dubon MD HISTORY OF PRESENT ILLNESS: The patient is a 55-year-old woman with a history of congestive heart failure and COPD, who presents with increasing dyspnea. The patient has a history of congestive heart failure. She is followed by a facility worker in [place]. She was admitted in December of 2019 with COPD exacerbation. She underwent an echocardiogram, revealed normal left ventricular ejection fraction of 60% to 65% with diastolic dysfunction. The patient presented several days ago with increasing dyspnea. She denied having any chest discomfort. PAST MEDICAL HISTORY: 1. Congestive heart failure. 2. COPD. 3. Pulmonary embolism. 4. Hypertension. 5. Anxiety. 6. Diabetes. PAST SURGICAL HISTORY: Hysterectomy, back surgery, thyroid surgery, and cholecystectomy. SOCIAL HISTORY: Long history of tobacco abuse. She also smokes marijuana. FAMILY HISTORY: There is a positive family history of heart disease. ALLERGIES: CODEINE. MEDICATIONS ON ADMISSION: See nursing list. REVIEW OF SYSTEMS: Ten-point system otherwise unremarkable. PHYSICAL EXAMINATION: GENERAL: Obese woman, in no acute distress. VITAL SIGNS: Blood pressure of 125/93. NECK: No jugular venous distention. LUNGS: Decreased breath sounds bilateral. HEART: Regular rate and rhythm. Normal S1, S2. No murmurs. ABDOMEN: Distended. EXTREMITIES: Showed mild bilateral edema. VASCULAR: Radial pulses are 2+. LABORATORY DATA: Sodium 142, potassium 4.4, chloride 100, bicarbonate 35, BUN 18, creatinine 0.67. White blood cell count 4.3, hemoglobin 15.6, hematocrit 46.5, and platelets are 164. EKG normal sinus rhythm with a nonspecific T-wave abnormality. monitor worker short run of nonsustained ventricular tachycardia. IMPRESSION: 1. Congestive heart failure. 2. Chronic obstructive pulmonary disease. 3. Short nonsustained ventricular tachycardia. 4. Hypertension. 5. Diabetes mellitus. 6. Morbid obesity. 7. History of pulmonary embolus. 8. Tobacco abuse. This patient had a short run of nonsustained ventricular tachycardia. She had an echocardiogram recently which revealed no significant left ventricular dysfunction. The patient did present with recurrent congestive heart failure. She does have evidence of congestive heart failure. She was diuresed with IV Lasix. The patient should be on a low-dose of beta noy, as she does not appear to have severe COPD. She had been previously on Coreg. I would restart this at a lower dose. In addition, the patient should be on lipid-lowering medication. I would recommend repeating her echocardiogram to make sure that her left ventricular function remains normal. She should follow up with her facility worker as an outpatient. I will follow this patient with you through her hospitalization. Job ID: [id number]
[2020-06-24] MEDS: Carvedilol 6.25 MG TAB PO SCH (16:31)
[2020-06-24] MEDS ORDERED: Atorvastatin Calcium 40 MG TAB PO SCH (21:00)
[2020-06-24] MEDS: Acetaminophen 325 MG TAB PO PRN (21:54)
[2020-06-25] MEDS: Budesonide 0.5 MG/2 ML NEB NEB SCH (05:21)
[2020-06-25] MEDS: HumaLOG 300 UNITS/3 ML VIAL SC PRN ×2 (06:07→11:41)
[2020-06-25] MEDS: Doxycycline 100 MG CAP PO SCH (09:19)
[2020-06-25] MEDS: metFORMIN 500 MG TAB PO SCH (09:19)
[2020-06-25] MEDS: Famotidine 20 MG TAB PO SCH (09:19)
[2020-06-25] MEDS: Aspirin 81 mg Enteric Coated Tablet PO SCH (09:19)
[2020-06-25] MEDS: Carvedilol 6.25 MG TAB PO SCH (09:20)
[2020-06-25] MEDS: Enoxaparin Sodium 40 MG/0.4 ML SYRINGE SC SCH (09:21)
[2020-06-25] MEDS: predniSONE 20 MG TAB PO SCH (09:21)
[2020-06-25] MEDS: Insulin Glargine 15 UNITS in Pre-Filled Syringe SC SCH (09:21)
[2020-06-25] MEDS ORDERED: Furosemide 40 MG TAB PO SCH (10:00)
[2020-06-25] MEDS: Furosemide 40 MG/4 ML VIAL SLOW IVP SCH (10:19)
[2020-06-25 11:56] VITALS: BP 122/78; TEMP 98.8
== END 2020-06-25 15:25 | disposition left against medical advice (07) | DRG 291 ==
LOC: ERS 09:01 → ERHOLD 13:40 → 2NO 17:58
PROVIDERS: ADMIT Internal Medicine; ATTEND Internal Medicine
DX: I11.0 Hypertensive heart disease with heart failure (principal); J96.22 Acute and chronic respiratory failure with hypercapnia; J96.21 Acute and chronic respiratory failure with hypoxia; J44.1 Chronic obstructive pulmonary disease with (acute) exacerbation; Z68.41 Body mass index [BMI] 40.0-44.9, adult; E87.3 Alkalosis; I47.1 Supraventricular tachycardia; I50.33 Acute on chronic diastolic (congestive) heart failure; F41.9 Anxiety disorder, unspecified; F43.10 Post-traumatic stress disorder, unspecified; F32.9 Major depressive disorder, single episode, unspecified; E66.01 Morbid (severe) obesity due to excess calories; G47.33 Obstructive sleep apnea (adult) (pediatric); M19.90 Unspecified osteoarthritis, unspecified site; T38.0X5A Adverse effect of glucocorticoids and synthetic analogues, initial encounter; E09.65 Drug or chemical induced diabetes mellitus with hyperglycemia; Y92.238 Other place in hospital as the place of occurrence of the external cause; E83.42 Hypomagnesemia; Z53.29 Procedure and treatment not carried out because of patient's decision for other reasons; Z20.828 Contact with and (suspected) exposure to other viral communicable diseases; Z90.49 Acquired absence of other specified parts of digestive tract; Z98.890 Other specified postprocedural states; Z90.710 Acquired absence of both cervix and uterus; Z88.6 Allergy status to analgesic agent; Z86.711 Personal history of pulmonary embolism; Z79.899 Other long term (current) drug therapy; Z87.891 Personal history of nicotine dependence
CPT/HCPCS: 0240U; 36415; 36416; 36600; 71045; 80048; 80053; 82728; 82805; 83036; 83615; 83735; 83880; 84443; 84484; 85025; 85379; 86140; 87040; 93005; 93306; 93798; 94640; 96374; J1650; J1815; J1940; J2920; J2930; J3475; J7512; J7620; J7626

== ENCOUNTER 2022-06-11 14:16 | Inpatient (IN) | payer SELFPAY ==
[~2022-06-11 14:16] MED LIST changes: -ISOVUE-370 76%-LOCM 1 ML ONE; +Iopamidol-370 76% 500 ML 1 ML ONE
[2022-06-11] MEDS ORDERED: Furosemide 40 MG/4 ML VIAL ONE (14:52)
[2022-06-11 15:21] LABS: #Eosinphils 0.1 thou/uL (0.0-0.7); #Lymphocytes 0.3 thou/uL (1.20-3.40); #Monocytes 0.2 thou/uL (0.11-0.59); #Neutrophils 7.1 thou/uL (1.40-6.50); %Basophils 0.4 % (0.0-1.0); %Eosinophils 1.1 % (0.0-10.0); %Lymphocytes 4.2 % (21.0-51.0); %Monocytes 2.7 % (0.0-10.0); %Neutrophils 91.6 % (42.0-75.0); Hemoglobin 14.6 g/dL (12.0-16.0); Mean Corpuscular Hemoglobin 26.9 pg (27.0-31.0); Mean Corpuscular Volume 86.7 fl (78.0-98.0); Mean Platelet Volume 11.4 fL (7.4-10.4); Platelet Count 192 10x3/uL (130-400); RBC Distribution Width 19.2 % (11.5-14.5); Red Blood Cell (RBC) Count 5.41 mill/uL (4.20-5.40); White Blood Cell (WBC) Count 7.7 10x3/uL (4.8-10.8)
[2022-06-11 15:44] LABS: ALT (SGPT) 16 U/L (8-55); AST (SGOT) 11 U/L (5-34); Albumin 3.8 g/dL (3.5-5.0); Alkaline Phosphatase 80 U/L (40-110); Anion Gap 13 mmol/L (10-20); BUN (Urea Nitrogen) 6 mg/dL (9.8-20.1); Bilirubin, Total 0.6 mg/dL (0.2-1.2); Calc. Creatinine Clearance 0 mL/min (70-130); Calcium 8.5 mg/dL (7.8-10.44); Carbon Dioxide 31 mmol/L (22-29); Chloride 103 mmol/L (98-107); Estimated GFR 98; Glucose 272 mg/dL (70-105); Potassium 3.6 mmol/L (3.5-5.1); Protein, Total 6.8 g/dL (6.0-8.3); Sodium 143 mmol/L (136-145)
[2022-06-11 16:44] LABS: Actual Bicarbonate (HCO3v) 34 mEq/L (22-28); Base Excess 6.8 mEq/L (-2.0 to +3.0); Calcium, Ionized (venous) 1.03 mmol/L (1.16-1.32); Chloride (VBG) 101 mmol/L (98-106); Hemoglobin (Hb) 16.3 g/dL (11.7-16.0); Potassium (VBG) 3.66 mmol/L (3.70-5.30); Sodium 142.4 mmol/L (133-146); pH (venous) 7.39 (7.32-7.43)
[2022-06-11] MEDS ORDERED: Senokot S 8.6-50 MG TAB PO PRN (18:26)
[2022-06-11] MEDS ORDERED: Ondansetron ODT 4 MG TAB PO PRN (18:26)
[2022-06-11] MEDS ORDERED: methylPREDNISolone Sod Succ 40 MG VIAL IVP SCH (18:30)
[2022-06-11 19:06] LABS: Troponin I Less than 0.010 ng/mL (< 0.028)
[2022-06-11 21:48] LABS: Troponin I Less than 0.010 ng/mL (< 0.028)
[2022-06-11] MEDS ORDERED: Dextrose 50% Abboject 50 ML SYRINGE SLOW IVP PRN (21:48)
[2022-06-11] MEDS ORDERED: Dextrose 5% in Water 1,000 ML IV PRN (21:48)
[2022-06-11] MEDS ORDERED: methylPREDNISolone Sod Succ 40 MG VIAL ONE (22:04)
[2022-06-11] MEDS ORDERED: HumaLOG 300 UNITS/3 ML VIAL ONE (22:17)
[2022-06-11] MEDS: HumaLOG 300 UNITS/3 ML VIAL SC PRN (22:19)
[2022-06-11 23:23] LABS: SARS-CoV-2 NAA Rapid Test DETECTED (NotDetected)
[2022-06-12] MEDS: Famotidine 20 MG TAB PO SCH ×3 (00:11→21:27)
[2022-06-12] MEDS ORDERED: Albuterol 200 PUFF (6.7GM INHALER) ONE (02:48)
[2022-06-12] MEDS: Albuterol 200 PUFF (6.7GM INHALER) INH SCH ×2 (02:56→22:12)
[2022-06-12] MEDS ORDERED: Acetaminophen 325 MG TAB ONE (05:14)
[2022-06-12] MEDS: Acetaminophen 325 MG TAB PO PRN ×2 (05:21→22:12)
[2022-06-12 07:04] LABS: Anion Gap 13 mmol/L (10-20); BUN (Urea Nitrogen) 9 mg/dL (9.8-20.1); Calc. Creatinine Clearance 164 mL/min (70-130); Calcium 8.5 mg/dL (7.8-10.44); Carbon Dioxide 33 mmol/L (22-29); Chloride 98 mmol/L (98-107); Estimated GFR 98; Glucose 274 mg/dL (70-105); Potassium 3.7 mmol/L (3.5-5.1); Sodium 140 mmol/L (136-145)
[2022-06-12 07:23] LABS: Hemoglobin 14.1 g/dL (12.0-16.0); Mean Corpuscular HGB CONC 32.6 g/dL (32.0-36.0); Mean Corpuscular Hemoglobin 28.4 pg (27.0-31.0); Mean Corpuscular Volume 87.1 fl (78.0-98.0); Mean Platelet Volume 10.8 fL (7.4-10.4); Platelet Count 201 10x3/uL (130-400); RBC Distribution Width 18.3 % (11.5-14.5); Red Blood Cell (RBC) Count 4.97 mill/uL (4.20-5.40); White Blood Cell (WBC) Count 5.5 10x3/uL (4.8-10.8)
[2022-06-12] MEDS ORDERED: Aspirin 81 mg Enteric Coated Tablet ONE (08:07)
[2022-06-12] MEDS ORDERED: Furosemide 40 MG/4 ML VIAL ONE ×2 (08:07→12:48)
[2022-06-12] MEDS ORDERED: Famotidine 20 MG TAB ONE (08:08)
[2022-06-12] MEDS ORDERED: methylPREDNISolone Sod Succ 40 MG VIAL ONE ×2 (08:08→12:48)
[2022-06-12] MEDS: Furosemide 40 MG/4 ML VIAL SLOW IVP SCH ×2 (08:09→13:38)
[2022-06-12] MEDS: methylPREDNISolone Sod Succ 40 MG VIAL IVP SCH ×3 (08:10→18:49)
[2022-06-12] MEDS: Aspirin 81 mg Enteric Coated Tablet PO SCH (08:17)
[2022-06-12] MEDS: Amlodipine 10 MG TAB PO SCH (08:17)
[2022-06-12] MEDS: Carvedilol 25 MG TAB PO SCH (08:17)
[2022-06-12] MEDS: HumaLOG 300 UNITS/3 ML VIAL SC PRN ×3 (08:22→22:11)
[2022-06-12 08:49] LABS: #Lymphocytes 0.6 thou/uL (1.20-3.40); #Monocytes 0.2 thou/uL (0.11-0.59); %Basophils 0.1 % (0.0-1.0); %Eosinophils 0.4 % (0.0-10.0); %Lymphocytes 10.7 % (21.0-51.0); %Monocytes 3.6 % (0.0-10.0); %Neutrophils 85.2 % (42.0-75.0); Band 2 % (5-11); Lymphocytes 8 % (21-51); MDiff Complete? YES; Monocytes 2 % (0-10); Neutrophil 88 % (42-75); Platelet Morphology Comment Appears Adequate; Polychromasia MODERATE = 3-4 cells (100X) (0-2/hpf); Stomatocytes MODERATE= 6-15 cells (100X) (0-1/hpf)
[2022-06-12] MEDS ORDERED: Furosemide 40 MG TAB PO SCH (09:00)
[2022-06-12] MEDS ORDERED: Lisinopril 20 MG TAB PO SCH (09:00)
[2022-06-12] MEDS ORDERED: Dextrose 50% Abboject 50 ML SYRINGE SLOW IVP PRN (14:48)
[2022-06-12] MEDS ORDERED: Dextrose 5% in Water 1,000 ML IV PRN (14:48)
[2022-06-12 17:11] VITALS: BMI 47.2
[2022-06-12] MEDS ORDERED: Electrolyte Replacement Protocol 1 EACH FS SCH (22:00)
[2022-06-13] MEDS: methylPREDNISolone Sod Succ 40 MG VIAL IVP SCH ×3 (00:43→17:26)
[2022-06-13] MEDS: Albuterol 200 PUFF (6.7GM INHALER) INH SCH ×2 (00:51→06:47)
[2022-06-13] MEDS ORDERED: guaiFENesin ER 600 MG TAB PO SCH ×2 (01:45→21:00)
[2022-06-13 05:32] LABS: Anion Gap 12 mmol/L (10-20); BUN (Urea Nitrogen) 16 mg/dL (9.8-20.1); Calc. Creatinine Clearance 158 mL/min (70-130); Calcium 8.9 mg/dL (7.8-10.44); Carbon Dioxide 35 mmol/L (22-29); Chloride 97 mmol/L (98-107); Estimated GFR 95; Glucose 341 mg/dL (70-105); Potassium 4.3 mmol/L (3.5-5.1); Sodium 140 mmol/L (136-145)
[2022-06-13] MEDS: Furosemide 40 MG/4 ML VIAL SLOW IVP SCH ×2 (06:45→13:41)
[2022-06-13] MEDS: HumaLOG 300 UNITS/3 ML VIAL SC PRN ×3 (06:46→20:56)
[2022-06-13] MEDS: Famotidine 20 MG TAB PO SCH ×2 (09:57→20:48)
[2022-06-13] MEDS: Acetaminophen 325 MG TAB PO PRN (09:57)
[2022-06-13] MEDS: Aspirin 81 mg Enteric Coated Tablet PO SCH (09:58)
[2022-06-13] MEDS: Sertraline 100 MG TAB PO SCH (09:58)
[2022-06-13] MEDS: Lisinopril 10 MG TAB PO SCH (09:58)
[2022-06-13] MEDS: Amlodipine 10 MG TAB PO SCH (09:58)
[2022-06-13] MEDS: Carvedilol 25 MG TAB PO SCH (09:59)
[2022-06-13] MEDS: metFORMIN 500 MG TAB PO SCH (17:26)
[2022-06-14] MEDS: Acetaminophen 325 MG TAB PO PRN ×2 (03:35→17:01)
[2022-06-14 05:51] LABS: BUN (Urea Nitrogen) 17 mg/dL (9.8-20.1); Calc. Creatinine Clearance 167 mL/min (70-130); Calcium 9.3 mg/dL (7.8-10.44); Estimated GFR 98; Glucose 291 mg/dL (70-105)
[2022-06-14 06:00] LABS: Anion Gap 15 mmol/L (10-20); Carbon Dioxide 37 mmol/L (22-29); Chloride 93 mmol/L (98-107); Potassium 4.1 mmol/L (3.5-5.1); Sodium 141 mmol/L (136-145)
[2022-06-14] MEDS: Furosemide 40 MG/4 ML VIAL SLOW IVP SCH (06:27)
[2022-06-14] MEDS: methylPREDNISolone Sod Succ 40 MG VIAL IVP SCH ×2 (06:27→17:01)
[2022-06-14] MEDS: Amlodipine 10 MG TAB PO SCH (09:14)
[2022-06-14] MEDS: Aspirin 81 mg Enteric Coated Tablet PO SCH (09:14)
[2022-06-14] MEDS: Lisinopril 10 MG TAB PO SCH (09:14)
[2022-06-14] MEDS: Carvedilol 25 MG TAB PO SCH (09:15)
[2022-06-14] MEDS: Famotidine 20 MG TAB PO SCH ×2 (09:15→20:26)
[2022-06-14] MEDS: metFORMIN 500 MG TAB PO SCH ×2 (09:15→17:01)
[2022-06-14] MEDS: Sertraline 100 MG TAB PO SCH (09:15)
[2022-06-14] MEDS: HumaLOG 300 UNITS/3 ML VIAL SC PRN ×3 (11:05→20:25)
[2022-06-14] MEDS: SYSTANE GEL OPHTH DROPS 10 ML EA EYE SCH ×2 (14:32→20:27)
[2022-06-15] MEDS: Acetaminophen 325 MG TAB PO PRN ×2 (01:52→20:10)
[2022-06-15 05:47] LABS: Anisocytosis SLIGHT = 6-15 cells (100X) (0-5/hpf); Band 2 % (5-11); Hemoglobin 14.1 g/dL (12.0-16.0); Lymphocytes 8 % (21-51); MDiff Complete? YES; Mean Corpuscular HGB CONC 31.5 g/dL (32.0-36.0); Mean Corpuscular Hemoglobin 27.8 pg (27.0-31.0); Mean Corpuscular Volume 88.1 fl (78.0-98.0); Mean Platelet Volume 7.8 fL (7.4-10.4); Monocytes 1 % (0-10); Neutrophil 89 % (42-75); Platelet Count 143 10x3/uL (130-400); RBC Distribution Width 18.2 % (11.5-14.5); Red Blood Cell (RBC) Count 5.08 mill/uL (4.20-5.40); White Blood Cell (WBC) Count 4.3 10x3/uL (4.8-10.8)
[2022-06-15] MEDS: methylPREDNISolone Sod Succ 40 MG VIAL IVP SCH ×2 (06:06→16:47)
[2022-06-15 07:23] LABS: BUN (Urea Nitrogen) 15 mg/dL (9.8-20.1); Calc. Creatinine Clearance 174 mL/min (70-130); Calcium 9.7 mg/dL (7.8-10.44); Estimated GFR 100; Glucose 265 mg/dL (70-105); Magnesium 1.9 mg/dL (1.6-2.6)
[2022-06-15 07:32] LABS: Anion Gap 18 mmol/L (10-20); Carbon Dioxide 35 mmol/L (22-29); Chloride 92 mmol/L (98-107); Potassium 4.5 mmol/L (3.5-5.1); Sodium 140 mmol/L (136-145)
[2022-06-15] MEDS: Amlodipine 10 MG TAB PO SCH (08:23)
[2022-06-15] MEDS: metFORMIN 500 MG TAB PO SCH ×2 (08:23→16:47)
[2022-06-15] MEDS: Aspirin 81 mg Enteric Coated Tablet PO SCH (08:23)
[2022-06-15] MEDS: Carvedilol 25 MG TAB PO SCH (08:23)
[2022-06-15] MEDS: Furosemide 40 MG TAB PO SCH ×2 (08:24→14:39)
[2022-06-15] MEDS: Lisinopril 10 MG TAB PO SCH (08:24)
[2022-06-15] MEDS: Sertraline 100 MG TAB PO SCH (08:24)
[2022-06-15] MEDS: Famotidine 20 MG TAB PO SCH ×2 (08:24→19:46)
[2022-06-15] MEDS: SYSTANE GEL OPHTH DROPS 10 ML EA EYE SCH ×3 (08:24→19:46)
[2022-06-15] MEDS ORDERED: Magnesium 2 GM/50 ML(in water) 2 GM in Premix Bag 1 BAG IVPB SCH (09:00)
[2022-06-15 09:31] LABS: Phosphorus 3.8 mg/dL (2.3-4.7)
[2022-06-15] MEDS ORDERED: Dextrose 5% in Water 1,000 ML IV PRN (12:15)
[2022-06-15] MEDS ORDERED: Dextrose 50% Abboject 50 ML SYRINGE SLOW IVP PRN (12:15)
[2022-06-15] MEDS: HumaLOG 300 UNITS/3 ML VIAL SC PRN ×3 (12:37→20:30)
[2022-06-15] MEDS: cefTRIAXone\\ROCEPHIN 1 GM in Sodium Chloride 0.9% 100 ML IVPB SCH (16:47)
[2022-06-15 17:17] LABS: Bacteria/HPF 2+ HPF (None Seen); Bilirubin Negative (Negative); Blood, Urine Negative (Negative); CAUTI Indications for Culture Dysuria,urgency,freq; Glucose, Urine (Dipstick) 300 mg/dL (Negative); Ketone, Urine Negative (Negative); Leukocyte Negative Leu/uL (Negative); Nitrite 2+ (Negative); Protein, Urine (Dipstick) Negative (Neg-Trace); RBC/HPF 0-3 HPF (0-3); Specific Gravity, Urine 1.011 (1.002-1.036); Urobilinogen Normal mg/dL (Less than 2); WBC/HPF 0-3 HPF (0-3); pH, Urine 6.5 (5.0-9.0)
[2022-06-15 17:18] LABS: Clarity Cloudy (Clear)
[2022-06-15 17:19] LABS: Urine Culture Reflex No No
[2022-06-16 05:34] LABS: #Lymphocytes 0.4 thou/uL (1.20-3.40); #Monocytes 0.2 thou/uL (0.11-0.59); #Neutrophils 2.8 thou/uL (1.40-6.50); %Eosinophils 0.5 % (0.0-10.0); %Lymphocytes 11.9 % (21.0-51.0); %Monocytes 6.5 % (0.0-10.0); %Neutrophils 81.1 % (42.0-75.0); Hemoglobin 14.6 g/dL (12.0-16.0); Mean Corpuscular HGB CONC 31.6 g/dL (32.0-36.0); Mean Corpuscular Hemoglobin 27.8 pg (27.0-31.0); Mean Platelet Volume 7.3 fL (7.4-10.4); Platelet Count 149 10x3/uL (130-400); RBC Distribution Width 17.8 % (11.5-14.5); Red Blood Cell (RBC) Count 5.26 mill/uL (4.20-5.40); White Blood Cell (WBC) Count 3.4 10x3/uL (4.8-10.8)
[2022-06-16 05:36] LABS: ALT (SGPT) 27 U/L (8-55); AST (SGOT) 13 U/L (5-34); Albumin 3.5 g/dL (3.5-5.0); Alkaline Phosphatase 63 U/L (40-110); BUN (Urea Nitrogen) 19 mg/dL (9.8-20.1); Bilirubin, Total 0.4 mg/dL (0.2-1.2); Calc. Creatinine Clearance 167 mL/min (70-130); Calcium 9.5 mg/dL (7.8-10.44); Estimated GFR 100; Glucose 239 mg/dL (70-105); Phosphorus 4.1 mg/dL (2.3-4.7); Protein, Total 6.5 g/dL (6.0-8.3)
[2022-06-16 05:45] LABS: Anion Gap 20 mmol/L (10-20); Carbon Dioxide 34 mmol/L (22-29); Chloride 91 mmol/L (98-107); Potassium 4.7 mmol/L (3.5-5.1); Sodium 140 mmol/L (136-145)
[2022-06-16] MEDS: methylPREDNISolone Sod Succ 40 MG VIAL IVP SCH (06:15)
[2022-06-16] MEDS: HumaLOG 300 UNITS/3 ML VIAL SC PRN ×2 (06:15→11:57)
[2022-06-16] MEDS ORDERED: Magnesium 2 GM/50 ML(in water) 2 GM in Premix Bag 1 BAG IVPB SCH (08:00)
[2022-06-16] MEDS: SYSTANE GEL OPHTH DROPS 10 ML EA EYE SCH ×3 (09:45→20:18)
[2022-06-16] MEDS: Famotidine 20 MG TAB PO SCH ×2 (09:45→20:18)
[2022-06-16] MEDS: Aspirin 81 mg Enteric Coated Tablet PO SCH (09:46)
[2022-06-16] MEDS: Carvedilol 25 MG TAB PO SCH (09:46)
[2022-06-16] MEDS: Furosemide 40 MG TAB PO SCH ×2 (09:46→15:38)
[2022-06-16] MEDS: Amlodipine 10 MG TAB PO SCH (09:46)
[2022-06-16] MEDS: metFORMIN 500 MG TAB PO SCH ×2 (09:46→16:53)
[2022-06-16] MEDS: Lisinopril 10 MG TAB PO SCH (09:46)
[2022-06-16] MEDS: Sertraline 100 MG TAB PO SCH (09:46)
[2022-06-16] MEDS: Doxycycline 100 MG in Sodium Chloride 0.9% 100 ML IVPB SCH ×2 (09:47→22:03)
[2022-06-16] MEDS ORDERED: cefTRIAXone\\ROCEPHIN 1 GM in Sodium Chloride 0.9% 100 ML IVPB SCH (13:15)
[2022-06-16] MEDS: cefTRIAXone\\ROCEPHIN 1 GM in Sodium Chloride 0.9% 100 ML IVPB SCH (15:37)
[2022-06-16] MEDS: Acetaminophen 325 MG TAB PO PRN (20:18)
[2022-06-16] MEDS ORDERED: Doxycycline 100 MG in Sodium Chloride 0.9% 100 ML IVPB SCH (21:00)
[2022-06-16] MEDS ORDERED: Ketorolac Tromethamine 30 MG/ML VIAL IVP SCH (22:30)
[2022-06-17 06:37] LABS: #Eosinphils 0.1 thou/uL (0.0-0.7); #Lymphocytes 0.4 thou/uL (1.20-3.40); #Monocytes 0.3 thou/uL (0.11-0.59); #Neutrophils 4.1 thou/uL (1.40-6.50); %Eosinophils 1.1 % (0.0-10.0); %Lymphocytes 7.4 % (21.0-51.0); %Monocytes 5.8 % (0.0-10.0); %Neutrophils 85.7 % (42.0-75.0); Hemoglobin 13.7 g/dL (12.0-16.0); Mean Corpuscular HGB CONC 30.8 g/dL (32.0-36.0); Mean Corpuscular Hemoglobin 26.9 pg (27.0-31.0); Mean Corpuscular Volume 87.5 fl (78.0-98.0); Mean Platelet Volume 7.6 fL (7.4-10.4); Platelet Count 136 10x3/uL (130-400); RBC Distribution Width 17.6 % (11.5-14.5); Red Blood Cell (RBC) Count 5.09 mill/uL (4.20-5.40); White Blood Cell (WBC) Count 4.8 10x3/uL (4.8-10.8)
[2022-06-17 06:56] LABS: ALT (SGPT) 48 U/L (8-55); AST (SGOT) 27 U/L (5-34); Albumin 3.3 g/dL (3.5-5.0); Alkaline Phosphatase 59 U/L (40-110); BUN (Urea Nitrogen) 26 mg/dL (9.8-20.1); Bilirubin, Total 0.6 mg/dL (0.2-1.2); Calc. Creatinine Clearance 156 mL/min (70-130); Calcium 8.9 mg/dL (7.8-10.44); Estimated GFR 93; Globulin 2.6 g/dL (2.4-3.5); Glucose 206 mg/dL (70-105); Magnesium 1.8 mg/dL (1.6-2.6); Phosphorus 3.8 mg/dL (2.3-4.7); Protein, Total 5.9 g/dL (6.0-8.3)
[2022-06-17 07:08] LABS: Anion Gap 18 mmol/L (10-20); Carbon Dioxide 35 mmol/L (22-29); Chloride 89 mmol/L (98-107); Potassium 4.2 mmol/L (3.5-5.1); Sodium 138 mmol/L (136-145)
[2022-06-17] MEDS ORDERED: Magnesium 2 GM/50 ML(in water) 2 GM in Premix Bag 1 BAG IVPB SCH (08:00)
[2022-06-17] MEDS: Amlodipine 10 MG TAB PO SCH (10:11)
[2022-06-17] MEDS: SYSTANE GEL OPHTH DROPS 10 ML EA EYE SCH ×3 (10:11→22:39)
[2022-06-17] MEDS: Sertraline 100 MG TAB PO SCH (10:11)
[2022-06-17] MEDS: metFORMIN 500 MG TAB PO SCH ×2 (10:11→16:27)
[2022-06-17] MEDS: methylPREDNISolone Sod Succ 40 MG VIAL IVP SCH (10:12)
[2022-06-17] MEDS: Carvedilol 25 MG TAB PO SCH (10:12)
[2022-06-17] MEDS: Lisinopril 10 MG TAB PO SCH (10:12)
[2022-06-17] MEDS: Furosemide 40 MG TAB PO SCH ×2 (10:12→15:35)
[2022-06-17] MEDS: Aspirin 81 mg Enteric Coated Tablet PO SCH (10:12)
[2022-06-17] MEDS: Famotidine 20 MG TAB PO SCH ×2 (10:12→22:40)
[2022-06-17] MEDS: Doxycycline 100 MG in Sodium Chloride 0.9% 100 ML IVPB SCH (10:13)
[2022-06-17] MEDS: Acetaminophen 325 MG TAB PO PRN ×2 (10:29→22:44)
[2022-06-17] MEDS: HumaLOG 300 UNITS/3 ML VIAL SC PRN ×2 (10:44→22:43)
[2022-06-17] MEDS: Cefdinir 300 MG CAP PO SCH (22:40)
[2022-06-17] MEDS: Doxycycline 100 MG CAP PO SCH (22:40)
[2022-06-18 07:43] LABS: #Lymphocytes 0.6 thou/uL (1.20-3.40); #Monocytes 0.2 thou/uL (0.11-0.59); #Neutrophils 3.6 thou/uL (1.40-6.50); %Eosinophils 0.9 % (0.0-10.0); %Lymphocytes 12.9 % (21.0-51.0); %Monocytes 4.1 % (0.0-10.0); %Neutrophils 82.1 % (42.0-75.0); Hemoglobin 14.4 g/dL (12.0-16.0); Mean Corpuscular HGB CONC 32.3 g/dL (32.0-36.0); Mean Corpuscular Hemoglobin 27.6 pg (27.0-31.0); Mean Corpuscular Volume 85.4 fl (78.0-98.0); Mean Platelet Volume 5.8 fL (7.4-10.4); Platelet Count 122 10x3/uL (130-400); RBC Distribution Width 17.4 % (11.5-14.5); Red Blood Cell (RBC) Count 5.22 mill/uL (4.20-5.40); White Blood Cell (WBC) Count 4.4 10x3/uL (4.8-10.8)
[2022-06-18 07:58] LABS: Magnesium 1.7 mg/dL (1.6-2.6)
[2022-06-18 07:59] LABS: ALT (SGPT) 39 U/L (8-55); AST (SGOT) 16 U/L (5-34); Albumin 3.4 g/dL (3.5-5.0); Alkaline Phosphatase 58 U/L (40-110); Anion Gap 12 mmol/L (10-20); BUN (Urea Nitrogen) 15 mg/dL (9.8-20.1); Bilirubin, Total 0.9 mg/dL (0.2-1.2); Calc. Creatinine Clearance 180 mL/min (70-130); Calcium 9.3 mg/dL (7.8-10.44); Carbon Dioxide 37 mmol/L (22-29); Chloride 92 mmol/L (98-107); Estimated GFR 102; Glucose 155 mg/dL (70-105); Potassium 4.2 mmol/L (3.5-5.1); Protein, Total 6.4 g/dL (6.0-8.3); Sodium 137 mmol/L (136-145)
[2022-06-18] MEDS ORDERED: Magnesium 2 GM/50 ML(in water) 2 GM in Premix Bag 1 BAG IVPB SCH (08:45)
[2022-06-18] MEDS: metFORMIN 500 MG TAB PO SCH (09:24)
[2022-06-18] MEDS: Sertraline 100 MG TAB PO SCH (09:24)
[2022-06-18] MEDS: Cefdinir 300 MG CAP PO SCH (09:24)
[2022-06-18] MEDS: Aspirin 81 mg Enteric Coated Tablet PO SCH (09:24)
[2022-06-18] MEDS: Furosemide 40 MG TAB PO SCH (09:24)
[2022-06-18] MEDS: Famotidine 20 MG TAB PO SCH (09:24)
[2022-06-18] MEDS: Amlodipine 10 MG TAB PO SCH (09:24)
[2022-06-18] MEDS: Doxycycline 100 MG CAP PO SCH (09:24)
[2022-06-18] MEDS: Carvedilol 25 MG TAB PO SCH (09:25)
[2022-06-18] MEDS: Lisinopril 10 MG TAB PO SCH (09:25)
[2022-06-18] MEDS: methylPREDNISolone Sod Succ 40 MG VIAL IVP SCH ×2 (09:25→09:32)
[2022-06-18] MEDS: SYSTANE GEL OPHTH DROPS 10 ML EA EYE SCH (09:25)
[2022-06-18 12:43] VITALS: BP 99/61; TEMP 98.4
[2022-06-19] MEDS ORDERED: prednisoLONE 10 MG ODT TAB PO SCH (09:00)
== END 2022-06-18 14:27 | disposition home or self-care (01) | DRG 177 ==
LOC: ERS 14:16 → ERHOLD 18:04 → 2SW 06-12 15:58 → OBSVTOIN 06-12 17:18
PROVIDERS: ADMIT Internal Medicine; ATTEND Internal Medicine
PROC: 8E0ZXY6 Isolation (ICD-10-PCS; principal; 2022-06-12)
DX: U07.1 COVID-19 (principal); I50.33 Acute on chronic diastolic (congestive) heart failure; J12.82 Pneumonia due to coronavirus disease 2019; J18.9 Pneumonia, unspecified organism; J96.21 Acute and chronic respiratory failure with hypoxia; J44.1 Chronic obstructive pulmonary disease with (acute) exacerbation; J44.0 Chronic obstructive pulmonary disease with (acute) lower respiratory infection; N39.0 Urinary tract infection, site not specified; L40.9 Psoriasis, unspecified; F32.A Depression, unspecified; Z99.81 Dependence on supplemental oxygen; Z88.5 Allergy status to narcotic agent; Z79.899 Other long term (current) drug therapy; Z79.84 Long term (current) use of oral hypoglycemic drugs; Z79.52 Long term (current) use of systemic steroids; Z87.891 Personal history of nicotine dependence; Z90.710 Acquired absence of both cervix and uterus; Z90.49 Acquired absence of other specified parts of digestive tract; Z28.311 Partially vaccinated for COVID-19
CPT/HCPCS: 36415; 36416; 70450; 71045; 71275; 72125; 72192; 80048; 80053; 81001; 82805; 83735; 83880; 84100; 84132; 84145; 84484; 85025; 93005; 93306; 94640; 96372; 96374; 96375; 96376; G0378; J0696; J1650; J1815; J1885; J1940; J2920; J3475; J3490; J7620; Q0162; Q9967